=== PATIENT | female | born 1985 | race Caucasian/White ===

== ENCOUNTER 2017-05-16 18:52 | Emergency (ER) | payer MEDICAID, OTHER ==
--- NOTE | 2017-05-16 19:16 | EDPHY ---
H & P Time Seen by Provider: 05/16/17 19:03 HPI/ROS: Chief complaint. Altered mental status HPI. 31-year-old female with history of anxiety and depression as well as alcoholism was to have a mental health evaluation and assessment with [facility] yesterday. She skipped the appointment and disappeared overnight. She has been drinking alcohol. Unknown other medications. She has been suicidal in the past however her friend who is with her is not sure whether she has had thoughts of harming herself. She has previously cause self injury through cutting. Currently she has been vomiting and is nonverbal ROS Constitutional. no fever/chills, no weakness Eyes. no problems with vision ENT. no sore throat, no nasal drainage Cardiovascular. no chest pain Respiratory. no shortness of breath, no cough Abdominal. Vomiting . no problems urinating MS. no calf pain/swelling, no neck/back pain, no joint pain Skin. no rash Lymph. no swollen glands Neuro. Can not walk (Kelvin Cotto) Past Medical/Surgical History: Anxiety, depression, alcoholism (Kelvin Cotto) Social History: Single, daily smoker, recent alcohol (Kelvin Cotto) Physical Exam: General Appearance: Arousable well-developed female moderate distress. Tachycardic Eyes: Pupils equal round but dysconjugate gaze. ENT, Mouth: Mucous membranes are moist. Respiratory: There are no retractions, lungs are clear to auscultation. Cardiovascular: Regular rate and rhythm. Gastrointestinal: Abdomen is soft and nontender, no masses, bowel sounds normal. Neurological: Arousable. Moves all extremities Skin: Warm and dry, no rashes. Musculoskeletal: Neck is supple nontender. Extremities symmetrical, full range of motion. Psychiatric: Patient is currently nonverbal (Kelvin Cotto) Constitutional: Initial Vital Signs Temperature (C) 36.9 C 05/16/17 18:55 Heart Rate 136 H 05/16/17 18:55 Respiratory Rate 20 05/16/17 18:55 Blood Pressure 126/91 H 05/16/17 18:55 O2 Sat (%) 94 05/16/17 18:55 O2 Delivery Mode Room Air Allergies/Adverse Reactions: prochlorperazine [From Compazine] Allergy (Verified 05/16/17 19:35) LOCK JAW prochlorperazine edisylate [From Compazine] Allergy (Verified 05/16/17 19:35) LOCK JAW prochlorperazine maleate [From Compazine] Allergy (Verified 05/16/17 19:35) LOCK JAW Home Medications: Medication Instructions Recorded Ranitidine HCl [Zantac 75] 75 mg PO DAILY PRN 07/22/16 Venlafaxine Xr [Effexor Xr 75MG 225 mg PO DAILY 07/22/16 (*)] lamoTRIgine [LamICTAL 100 MG (*)] 50 mg PO DAILY 07/22/16 traZODone [traZODONE 50MG (*)] 50 mg PO HS PRN 07/22/16 Medical Decision Making Procedures: IV normal saline. Zofran for vomiting (Kelvin Cotto) ED Course/Re-evaluation: 7:30 p.m. patient is now agitated. She is given Haldol and Benadryl IV Re-evaluation 11:35 p.m.--patient is more awake and alert. She tells me that she has thoughts of harming herself. (Kelvin Cotto) Differential Diagnosis: Patient skipped her mental health evaluation yesterday and has drink a large amount alcohol. She is suicidal. She in the past has used alcohol for self medication for treatment of anxiety and depression She is placed on a detained her and will have a mental health evaluation once sober (Kelvin Cotto) Other Provider: Care assumed 0645 from [place], evaluation when sober by mental health. Evaluated by myself at 6:59 a.m., sleepy but easily awakened by voice, no medical complaints. She is not suicidal, says that she gets that way when she is drinking. 1150: Patient had psychiatric evaluation, she is not currently suicidal. Does not appear to meet criteria for mental health hold, does not appear to be danger to self or others or gravely disabled at this time. Recommendation from psychiatric evaluators to discharge the patient. (Cole Guerrero) Care Turn Over: care to Dr. Coppola at midnight (Kelvin Cotto) 0005 care assumed by me from Dr. Cotto pending sober mental health evaluation. 0655 care transferred to pending sober mental health evaluation. No issues during my care this patient overnight. (Loran,Griffin J) - Data Points Laboratory Results: Laboratory Results 05/16/17 19:05 05/16/17 19:05 05/17/17 05:34 Urine Opiates Screen NEGATIVE (NEGATIVE) Urine Barbiturates NEGATIVE (NEGATIVE) Ur Phencyclidine Scrn NEGATIVE (NEGATIVE) Ur Amphetamine Screen NEGATIVE (NEGATIVE) U Benzodiazepines Scrn NEGATIVE (NEGATIVE) Urine Cocaine Screen NEGATIVE (NEGATIVE) U Marijuana (THC) Screen NEGATIVE (NEGATIVE) Medications Given: Discontinued Medications Diphenhydramine HCl (Benadryl Injection) 12.5 mg IVP EDNOW ONE Stop: 05/16/17 19:36 Last Admin: 05/16/17 19:44 Dose: 12.5 mg Sodium Chloride (Ns) 1,000 mls @ 0 mls/hr IV ONCE ONE PRN Reason: Wide Open Stop: 05/16/17 19:21 Last Admin: 05/16/17 19:21 Dose: 1,000 mls Ondansetron HCl (Zofran) 4 mg IVP EDNOW ONE Stop: 05/16/17 19:21 Last Admin: 05/16/17 19:21 Dose: 4 mg Departure - Departure Disposition: Home, Routine, Self-Care Clinical Impression: Alcoholic intoxication Qualifiers: Complication of substance-induced condition: uncomplicated Qualified Code(s): F10.920 - Alcohol use, unspecified with intoxication, uncomplicated Condition: Good Instructions: Alcohol Intoxication (ED) Referrals: Reece Bowens MD [Primary Care Provider] - As per Instructions
[2017-05-16] MEDS ORDERED: ONDANSETRON 4 MG/2 ML VIAL ONE (19:18)
[2017-05-16] MEDS ORDERED: ONDANSETRON 4 MG/2 ML VIAL IVP ONE (19:20)
[2017-05-16] MEDS ORDERED: NS 1,000 ML IV ONE (19:20)
[2017-05-16 19:38] LABS: % IMMATURE GRANULYOCYTES 0.5 % (0.0-1.1); ABSOLUTE IMMATURE GRANULOCYTES 0.05 10^3/uL (0.00-0.10); ADD DIFF? NO; ADD MORPH? NO; ADD SCAN? NO; ATYPICAL LYMPHOCYTE FLAG 20 (0-99); FRAGMENT RBC FLAG 0 (0-99); HEMATOCRIT 43.6 % (38.0-47.0); HEMOGLOBIN 14.9 g/dL (12.6-16.3); LEFT SHIFT FLG 0 (0-99); LIPEMIA HEMOLYSIS FLAG 90 (0-99); MEAN CELL HEMOGLOBIN 29.9 pg (27.9-34.1); MEAN CELL HEMOGLOBIN CONCENTR. 34.2 g/dL (32.4-36.7); MEAN CELL VOLUME 87.4 fL (81.5-99.8); MEAN PLATELET VOLUME 8.9 fL (8.7-11.7); PLATELET CLUMPS FLAG 0 (0-99); PLATELET COUNT 470 10^3/uL (150-400); RED BLOOD CELL COUNT 4.99 10^6/uL (4.18-5.33); RED CELL DISTRIBUTION WIDTH 14.1 % (11.5-15.2)
[2017-05-16 19:41] LABS: ANION GAP 19 mEq/L (8-16); CALCIUM 9.6 mg/dL (8.5-10.4); CARBON DIOXIDE 20 mEq/l (22-31); CHLORIDE 111 mEq/L (97-110); CREATININE 0.8 mg/dL (0.6-1.0); GLOMERULAR FILTRATION RATE > 60; GLUCOSE 106 mg/dL (70-100); POTASSIUM 3.9 mEq/L (3.5-5.2); SODIUM 150 mEq/L (134-144)
[2017-05-16 19:56] LABS: ETHANOL SERUM 375 mg/dL (0-10)
[2017-05-17 11:05] VITALS: TEMP 98.1
[2017-05-17 12:24] VITALS: BP 141/95; PULSE 91; RESP 18; O2SAT 92
== END 2017-05-17 12:24 | disposition home or self-care (01) ==
DX: F10.920 Alcohol use, unspecified with intoxication, uncomplicated (principal); F17.200 Nicotine dependence, unspecified, uncomplicated
CPT/HCPCS: 80305; 82947-QW; 96374; G0480; J1200; J2405

== ENCOUNTER 2017-05-30 13:21 | Emergency (ER) | payer MEDICAID ==
[2017-05-30 13:28] VITALS: BP 119/91; PULSE 124; RESP 18; TEMP 98.8; O2SAT 96
== END 2017-05-30 15:00 | disposition left against medical advice (07) ==
DX: Z53.21 Procedure and treatment not carried out due to patient leaving prior to being seen by health care provider (principal)

== ENCOUNTER 2017-06-12 16:24 | Inpatient (IN) | payer MEDICAID ==
--- NOTE | 2017-06-12 16:45 | CPEKG ---
Heart Rate: 112 RR Interval: 536 P-R Interval: 128 QRSD Interval: 82 QT Interval: 356 QTC Interval: 486 P [place]: 0 QRS [place]: 52 T Wave [place]: 16 EKG Severity - ABNORMAL ECG - EKG Impression: SINUS TACHYCARDIA EKG Impression: RIGHT ATRIAL ABNORMALITY EKG Impression: BORDERLINE PROLONGED QT INTERVAL Electronically Signed By: Cole Guerrero 12-Jun-2017 17:06:58
--- NOTE | 2017-06-12 16:52 | EDPHY ---
H & P Time Seen by Provider: 06/12/17 16:36 HPI/ROS: CHIEF COMPLAINT: Altered mental status, overdose, mental health hold HISTORY OF PRESENT ILLNESS: came home and found the patient unresponsive and called 911. Fire arrived and found the patient unresponsive but on EMS arrival she was awake and combative. The patient told EMS that she tried overdose on her medications. She also admits to 13 shots of alcohol. She had nausea and vomiting prior to arrival. The medication bottles brought by EMS include Venlaxifine, trazodone, Lamictal, and Protonix. Further history and review of systems is unable as the patient is nonverbal on initial evaluation. PAST MEDICAL HISTORY: Per emergency department visit note dated 05/16/2017 which I personally reviewed, depression anxiety and alcohol Social history: Recent alcohol General Appearance: Lethargic, moves all 4 extremities spontaneously. Eyes: No scleral icterus. ENT, Mouth: Normal mucous membranes. No tongue laceration or abrasion. Respiratory: Normal respiratory effort, breath sounds equal, lungs are clear to auscultation. Cardiovascular: Regular rate and rhythm. Gastrointestinal: Abdomen is soft and non tender. Neurological: Lethargic, will not answer questions. Normal spontaneous movement in all 4 extremities. No clonus. Patellar reflexes 1+. Skin: Healed superficial lacerations on both forearms and right thigh, nothing new. Musculoskeletal: No peripheral edema and no joint swelling. Psychiatric: Unable, not verbal. Emergency Department course/MDM: 1715: Obtunded. Nasopharyngeal airway placed, patient on 100% face mask oxygen is still 87-88% saturation. Intubation discussed with family including and mother and consented. History at this time includes, previously had prolonged hospitalization at [facility] for serotonin syndrome. See procedure note for details of intubation. IV normal saline 2 L for transiently low blood pressure at 84 systolic. 1735: Chest x-ray one-view personally interpreted shows bilateral infiltrates consistent with aspiration, chemical pneumonitis at this time. Saturation 96%. Smoking Status: Never smoked Constitutional: Initial Vital Signs Temperature (C) 36.9 C 06/12/17 16:35 Heart Rate 130 H 06/12/17 16:35 Respiratory Rate 18 06/12/17 16:35 Blood Pressure 143/100 H 06/12/17 16:35 O2 Sat (%) 90 L 06/12/17 16:35 O2 Delivery Mode Non-Rebreather Mask O2 (L/minute) 15 Allergies/Adverse Reactions: prochlorperazine [From Compazine] Allergy (Verified 05/30/17 13:25) LOCK JAW prochlorperazine edisylate [From Compazine] Allergy (Verified 05/30/17 13:25) LOCK JAW prochlorperazine maleate [From Compazine] Allergy (Verified 05/30/17 13:25) LOCK JAW Home Medications: Medication Instructions Recorded traZODone [traZODONE 50MG (*)] 50 mg PO HS PRN 07/22/16 Ibuprofen [Motrin (*)] 200 mg PO Q4-6PRN PRN 06/12/17 Multivitamins [Multivitamin (*)] 1 each PO DAILY 06/12/17 Pantoprazole Sodium [Protonix 40mg 40 mg PO DAILY 06/12/17 (*)] Venlafaxine Xr [Effexor Xr] 150 mg PO DAILY 06/12/17 lamoTRIgine [Lamictal] 1 tab PO BID 06/12/17 Medical Decision Making - Diagnostics EKG Interpretation: 12-lead EKG interpreted by me; official reading is in trace master. My interpretation is sinus tachycardia, QTC is 356. Imaging Results: Imaging Impressions Chest X-Ray 06/12/17 17:26 Impression: 1. Bilateral lower lobe pneumonia, left greater than right, possible aspiration pneumonia. 2. Endotracheal tube above the angel. 3. Nasogastric tube in the stomach. Procedures: Indication for the procedure was obtained it, hypoxic. The patient was preoxygenated with 100% oxygen by face mask. The patient was sedated with Versed and paralyzed with rocuronium. The patient was orally endotracheally intubated under direct visualization with a 7.5 ETT. Tracheal intubation was confirmed with misting on the tube; breath sounds were auscultated equally bilaterally; appropriate color change with [place] CO2 detector, capnography waveform is appropriate, oxygen saturation after procedure is 96%. Chest X-ray shows ETT in good position. The procedure was performed by myself. Critical Care Time: Critical care time spent by me, Dr. Guerrero, exclusively with the care of this patient was 35 minutes, exclusive of PA or BILLIARD PARLOR MANAGER time and exclusive of separate procedures. The organ system at risk was neurologic metabolic and pulmonary and I ordered IV fluid resuscitation, multiple diagnostic studies, supplemental oxygen, discussion with hospitalist to stabilize the patient and prevent worsening of the patient's condition. - Data Points Laboratory Results: Laboratory Results 06/12/17 16:48 06/12/17 16:48 06/12/17 06/12/17 06/12/17 16:48 16:48 16:48 WBC RBC Hgb Hct MCV MCH MCHC RDW Plt Count MPV Neut % (Auto) Lymph % (Auto) [place] % (Auto) Eos % (Auto) Baso % (Auto) Nucleat RBC Rel Count Absolute Neuts (auto) Absolute Lymphs (auto) Absolute Monos (auto) Absolute Eos (auto) Absolute Basos (auto) Absolute Nucleated RBC Immature Gran % Immature Gran # Sodium 148 mEq/L H mEq/L (134-144) Potassium 4.0 mEq/L mEq/L (3.5-5.2) Chloride 104 mEq/L mEq/L (97-110) Carbon Dioxide 21 mEq/l L mEq/l (22-31) Anion Gap 23 mEq/L H mEq/L (8-16) BUN 8 mg/dL mg/dL (7-23) Creatinine 0.7 mg/dL mg/dL (0.6-1.0) Estimated GFR > 60 Glucose 130 mg/dL H mg/dL (70-100) Calcium 9.4 mg/dL mg/dL (8.5-10.4) Total Bilirubin 0.3 mg/dL mg/dL (0.1-1.4) Conjugated Bilirubin 0.3 mg/dL mg/dL (0.0-0.5) Unconjugated Bilirubin 0.0 mg/dL mg/dL (0.0-1.1) AST 39 IU/L IU/L (14-46) ALT 34 IU/L IU/L (9-52) Alkaline Phosphatase 99 IU/L IU/L (38-126) Creatine Kinase 41 IU/L IU/L (0-156) Total Protein 8.1 g/dL g/dL (6.3-8.2) Albumin 4.5 g/dL g/dL (3.5-5.0) Beta HCG, Qual NEGATIVE Salicylates < 1.0 mg/dL L mg/dL (2.0-20.0) Acetaminophen < 10 mcg/mL L mcg/mL (10-30) Ethyl Alcohol 298 mg/dL H mg/dL (0-10) 06/12/17 16:48 WBC 8.31 10^3/uL 10^3/uL (3.80-9.50) RBC 5.20 10^6/uL 10^6/uL (4.18-5.33) Hgb 15.8 g/dL g/dL (12.6-16.3) Hct 46.1 % % (38.0-47.0) MCV 88.7 fL fL (81.5-99.8) MCH 30.4 pg pg (27.9-34.1) MCHC 34.3 g/dL g/dL (32.4-36.7) RDW 13.7 % % (11.5-15.2) Plt Count 442 10^3/uL H 10^3/uL (150-400) MPV 8.8 fL fL (8.7-11.7) Neut % (Auto) 53.3 % % (39.3-74.2) Lymph % (Auto) 41.8 % % (15.0-45.0) [place] % (Auto) 3.2 % L % (4.5-13.0) Eos % (Auto) 0.6 % % (0.6-7.6) Baso % (Auto) 0.7 % % (0.3-1.7) Nucleat RBC Rel Count 0.0 % % (0.0-0.2) Absolute Neuts (auto) 4.43 10^3/uL 10^3/uL (1.70-6.50) Absolute Lymphs (auto) 3.47 10^3/uL H 10^3/uL (1.00-3.00) Absolute Monos (auto) 0.27 10^3/uL L 10^3/uL (0.30-0.80) Absolute Eos (auto) 0.05 10^3/uL 10^3/uL (0.03-0.40) Absolute Basos (auto) 0.06 10^3/uL 10^3/uL (0.02-0.10) Absolute Nucleated RBC 0.00 10^3/uL 10^3/uL (0-0.01) Immature Gran % 0.4 % % (0.0-1.1) Immature Gran # 0.03 10^3/uL 10^3/uL (0.00-0.10) Sodium Potassium Chloride Carbon Dioxide Anion Gap BUN Creatinine Estimated GFR Glucose Calcium Total Bilirubin Conjugated Bilirubin Unconjugated Bilirubin AST ALT Alkaline Phosphatase Creatine Kinase Total Protein Albumin Beta HCG, Qual Salicylates Acetaminophen Ethyl Alcohol Medications Given: Fentanyl/Sodium Chloride (Fentanyl 10 Mcg/Ml (Premix)) 100 mls @ 0 mls/hr IV CONT LIDYA; Per Protocol PRN Reason: Protocol Stop: 06/22/17 17:59 Last Admin: 06/12/17 19:24 Dose: 100 mls Propofol (Diprivan 10 Mg/Ml (Premix)) 100 mls @ 0 mls/hr IV CONT LIDYA; Per Protocol PRN Reason: Protocol Stop: 12/09/17 17:59 Last Admin: 06/12/17 19:24 Dose: 100 mls Sodium Chloride (Ns) 1,000 mls @ 125 mls/hr IV CONT LIDYA Stop: 12/09/17 18:44 Last Admin: 06/12/17 18:39 Dose: 1,000 mls Discontinued Medications Sodium Chloride (Ns) 1,000 mls @ 0 mls/hr IV EDNOW ONE; Wide Open PRN Reason: Protocol Stop: 06/12/17 17:25 Last Admin: 06/12/17 17:23 Dose: 1,000 mls Sodium Chloride (Ns) 1,000 mls @ 0 mls/hr IV EDNOW ONE; Wide Open PRN Reason: Protocol Stop: 06/12/17 17:38 Last Admin: 06/12/17 18:15 Dose: Not Given Midazolam HCl (Versed) 4 mg IVP EDNOW ONE Stop: 06/12/17 17:22 Last Admin: 06/12/17 17:24 Dose: 4 mg Rocuronium [place] (Zemuron) 60 mg IVP EDNOW ONE Stop: 06/12/17 17:22 Last Admin: 06/12/17 17:24 Dose: 60 mg Departure - Departure Disposition: [facility] In[facility] Acute Clinical Impression: Overdose of medication Qualifiers: Encounter type: initial encounter Injury intent: intentional self-harm Qualified Code(s): T50.902A - Poisoning by unspecified drugs, medicaments and biological substances, intentional self-harm, initial encounter Aspiration into airway Qualifiers: Encounter type: initial encounter Qualified Code(s): T17.908A - Unspecified foreign body in respiratory tract, part unspecified causing other injury, initial encounter Alcoholic intoxication Qualifiers: Complication of substance-induced condition: with unspecified complication Qualified Code(s): F10.929 - Alcohol use, unspecified with intoxication, unspecified Condition: Critical
[2017-06-12 16:59] LABS: % IMMATURE GRANULYOCYTES 0.4 % (0.0-1.1); ABSOLUTE IMMATURE GRANULOCYTES 0.03 10^3/uL (0.00-0.10); ADD DIFF? NO; ADD MORPH? NO; ADD SCAN? NO; ATYPICAL LYMPHOCYTE FLAG 60 (0-99); FRAGMENT RBC FLAG 0 (0-99); HEMATOCRIT 46.1 % (38.0-47.0); HEMOGLOBIN 15.8 g/dL (12.6-16.3); LEFT SHIFT FLG 0 (0-99); LIPEMIA HEMOLYSIS FLAG 90 (0-99); MEAN CELL HEMOGLOBIN 30.4 pg (27.9-34.1); MEAN CELL HEMOGLOBIN CONCENTR. 34.3 g/dL (32.4-36.7); MEAN CELL VOLUME 88.7 fL (81.5-99.8); MEAN PLATELET VOLUME 8.8 fL (8.7-11.7); PLATELET CLUMPS FLAG 10 (0-99); PLATELET COUNT 442 10^3/uL (150-400); RED CELL DISTRIBUTION WIDTH 13.7 % (11.5-15.2)
[2017-06-12 17:12] LABS: ANION GAP 23 mEq/L (8-16); CALCIUM 9.4 mg/dL (8.5-10.4); CARBON DIOXIDE 21 mEq/l (22-31); CHLORIDE 104 mEq/L (97-110); CREATININE 0.7 mg/dL (0.6-1.0); ETHANOL SERUM 298 mg/dL (0-10); GLOMERULAR FILTRATION RATE > 60; GLUCOSE 130 mg/dL (70-100); SALICYLATE < 1.0 mg/dL (2.0-20.0); SODIUM 148 mEq/L (134-144)
[2017-06-12] MEDS ORDERED: ROCURONIUM 100 MG/10 ML VIAL IVP ONE (17:21)
[2017-06-12] MEDS ORDERED: MIDAZOLAM 2 MG/2 ML VIAL IVP ONE (17:21)
[2017-06-12] MEDS ORDERED: NS 1,000 ML IV ONE ×2 (17:24→17:37)
[2017-06-12] MEDS ORDERED: MIDAZOLAM HCL 50 MG in D5W 50 ML IV SCH (17:30)
[2017-06-12] MEDS ORDERED: ACETAMINOPHEN 325 MG TAB PO PRN (17:43)
[2017-06-12] MEDS ORDERED: ONDANSETRON 4 MG/2 ML VIAL IVP PRN (17:43)
[2017-06-12] MEDS ORDERED: ONDANSETRON DISINTEGRATING 4 MG TAB PO PRN (17:43)
[2017-06-12 18:39] LABS: ALBUMIN 4.5 g/dL (3.5-5.0); BILIRUBIN,TOTAL 0.3 mg/dL (0.1-1.4); BILIRUBIN-CONJUGATED 0.3 mg/dL (0.0-0.5); TOTAL PROTEIN 8.1 g/dL (6.3-8.2)
[2017-06-12] MEDS ORDERED: NS 1,000 ML IV SCH (18:45)
[2017-06-12] MEDS: fentaNYL/NACL 100 ML IV SCH (19:24)
[2017-06-12] MEDS: PROPOFOL/EMULSION 100 ML IV SCH (19:24)
[2017-06-12] MEDS ORDERED: LORazepam 2 MG/ML INJ IVP ONE (19:29)
[2017-06-12] MEDS ORDERED: LORazepam 2 MG/ML INJ IVP PRN (19:29)
[2017-06-12] MEDS ORDERED: ERTAPENEM 1 GM in NS 100 ML IV ONE (19:32)
[2017-06-12] MEDS: PANTOPRAZOLE SODIUM 40 MG in NS 100 ML IV SCH (19:53)
[2017-06-12] MEDS: CHLORHEXIDINE GLUCONATE 15 ML UDL PO SCH (19:55)
[2017-06-12 20:21] LABS: BASE EXCESS -4.5 mEq/L (-2.5-2.5); BICARBONATE 19 mEq/L (22-26); MEASURED OXYGEN SATURATION 98 % (92-95); PCO2 32 mmHg (34-38); PO2 113 mmHg (65-75); TCO2 20 mEq/L (23-27)
[2017-06-12 20:22] LABS: END TIDAL CO2 34; O2 CONCENTRATIION 50 % (0-100); P/F RATIO 226 RATIO; PATIENT RATE 12; PRESSURE SUPPORT 7; SIMV YES
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
[2017-06-12] MEDS ORDERED: FAMOTIDINE 20 MG/NACL 50 ML IV SCH (21:00)
[2017-06-12] MEDS ORDERED: CHLORHEXIDINE GLUCONATE 15 ML UDL PO SCH (21:00)
[2017-06-12 22:35] LABS: HEMATOCRIT 38.5 % (38.0-47.0)
[2017-06-13] MEDS: NS 1,000 ML IV SCH ×2 (03:53→12:37)
[2017-06-13] MEDS: fentaNYL/NACL 100 ML IV SCH (03:53)
[2017-06-13] MEDS: PROPOFOL/EMULSION 100 ML IV SCH (03:53)
[2017-06-13] MEDS: DEXMEDETOMIDINE HCL 400 MCG in NS 100 ML IV SCH ×2 (04:27→12:37)
[2017-06-13 05:41] LABS: % IMMATURE GRANULYOCYTES 0.5 % (0.0-1.1); ABSOLUTE IMMATURE GRANULOCYTES 0.09 10^3/uL (0.00-0.10); ADD DIFF? NO; ADD MORPH? NO; ADD SCAN? NO; ATYPICAL LYMPHOCYTE FLAG 20 (0-99); FRAGMENT RBC FLAG 0 (0-99); HEMATOCRIT 33.8 % (38.0-47.0); HEMOGLOBIN 11.4 g/dL (12.6-16.3); LEFT SHIFT FLG 0 (0-99); LIPEMIA HEMOLYSIS FLAG 80 (0-99); MEAN CELL HEMOGLOBIN 30.6 pg (27.9-34.1); MEAN CELL HEMOGLOBIN CONCENTR. 33.7 g/dL (32.4-36.7); MEAN CELL VOLUME 90.6 fL (81.5-99.8); PLATELET CLUMPS FLAG 0 (0-99); PLATELET COUNT 298 10^3/uL (150-400); RED BLOOD CELL COUNT 3.73 10^6/uL (4.18-5.33)
[2017-06-13 05:53] LABS: ALANINE AMINOTRANSFERASE 27 IU/L (9-52); ALBUMIN 2.9 g/dL (3.5-5.0); ALKALINE PHOSPHATASE 59 IU/L (38-126); ANION GAP 12 mEq/L (8-16); ASPARTATE AMINOTRANSFERASE 23 IU/L (14-46); BILIRUBIN,TOTAL 0.2 mg/dL (0.1-1.4); CALCIUM 7.3 mg/dL (8.5-10.4); CARBON DIOXIDE 20 mEq/l (22-31); CHLORIDE 112 mEq/L (97-110); CREATININE 0.7 mg/dL (0.6-1.0); GLOMERULAR FILTRATION RATE > 60; GLUCOSE 88 mg/dL (70-100); POTASSIUM 3.8 mEq/L (3.5-5.2); SODIUM 144 mEq/L (134-144); TOTAL PROTEIN 5.3 g/dL (6.3-8.2)
[2017-06-13] MEDS ORDERED: PROTOCOL MAGNESIUM 1 DOSE IV PRN (06:08)
[2017-06-13] MEDS ORDERED: PROTOCOL POTASSIUM 1 DOSE MISC PRN (06:08)
[2017-06-13] MEDS ORDERED: MAGNESIUM SULF 2 GM/WATER 50 ML IV ONE (06:09)
[2017-06-13] MEDS: CHLORHEXIDINE GLUCONATE 15 ML UDL PO SCH (08:21)
[2017-06-13] MEDS: PANTOPRAZOLE SODIUM 40 MG in NS 100 ML IV SCH (08:21)
[2017-06-13] MEDS ORDERED: ENOXAPARIN 40 MG/0.4 ML SYR SC SCH (09:00)
[2017-06-13] MEDS ORDERED: ERTAPENEM 1 GM in NS 100 ML IV SCH (09:00)
[2017-06-13] MEDS ORDERED: PROTOCOL K PHOSPHATE 1 DOSE IV PRN (10:44)
--- NOTE | 2017-06-13 10:48 | GCON ---
[f rep st] CONSULTATION PULMONARY CRITICAL CARE CONSULTATION DATE OF CONSULTATION: 06/13/2017 REASON FOR CONSULTATION: Acute respiratory failure, drug overdose. HISTORY: The patient is a 31-year-old with a history of depression, psychiatric disease, PTSD, anxi ety, and alcohol abuse. She has had prior suicide attempts and has been intubated in the past secon indra to these. She has also tried to cut her wrists. Yesterday she was found down at home. Her hu sband called 911. The patient was unresponsive initially, but was combative in route. She apparent ly said she tried to overdose with medications and alcohol. She did have witnessed nausea and vomit ing in transport. Ingested medications included Effexor, trazodone and Lamictal, possible Protonix. She was admitted to the Intensive Care Unit. She did receive 1 dose of ertapenem. She has been sed ated, is on the ventilator. PAST MEDICAL HISTORY: Remarkable for her psychiatric issues as outlined above. She has apparently been hospitalized at [facility] a number of times. She has had multiple suicide attempts and gestures. SOCIAL HISTORY: , lives in [place]. Apparently, drinks numerous shots of vodka daily. 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 She is disabled secondary to her borderline personality and psychiatric/d epressive illness. FAMILY HISTORY: Positive for depression and anxiety. DRUG ALLERGIES: Compazine. REVIEW OF SYSTEMS: Unobtainable. PHYSICAL EXAMINATION: GENERAL: Reveals a young woman who is sedated, on the ventilator, with stimu lation she will arouse and follows some simple commands, moves extremities to commands, etc. VITAL SIGNS: Blood pressure is 100/70, heart rate 75, is sinus rhythm on the monitor. She is afebr ile on 40% FiO2, saturations are 99%, respiratory rate is 16, set on the ventilator. HEENT: Remarkable for an oral endotracheal tube and orogastric tube. Pupils are equal and appear t o be reactive. Mucous membranes are somewhat dry. NECK: There is no lymphadenopathy or thyromegaly. No obvious jugular venous distention or neck ten derness. CHEST: Clear anteriorly. Breath sounds are diminished at the bases. Breath sounds are coarse with some minimal central rhonchi, and a few rales are present at the bases. There is no obvious consol idation. HEART: Regular rate and rhythm without significant murmur or gallop. ABDOMEN: Soft. Bowel sounds are present, but diminished. There is no obvious tenderness. : Franklin catheter is in place. Urine output is adequate. Input is greater than output. EXTREMITIES: Unremarkable for edema or obvious cords. SKIN: Without rash or lesions. Old cut abreu are present over the wrists, left greater than right. LABORATORY DATA: Chest x-ray on admission from last night shows bilateral lower lobe infiltrates/at electasis. Changes are more significant on the left compared to the right. Lines and tubes are in good position. White blood cell count is approximately 17,000, up from 8,000 on admission. Hematocrit is 33.8, barby n from 46. Platelets are 298,000. Arterial blood gas post intubation showed a pH of 7.39, pCO2 of 32, and pO2 of 113 on 50%, 600 and a respiratory rate of 12. Basic metabolic panel is within normal limits with the exception of a CO2 of 20. Anion gap this morning is 12, down from 23. Calcium is 7.3, phosphorus 3.5, and magnesium low at 1.0. BUN is 6 with a creatinine is 0.7. Sodium and potas sium are normal. Bilirubin liver function studies are normal. Albumin is 2.9. Beta HCG was negati ve on admission. Blood alcohol on admission was 298. Tox screen, salicylates, acetaminophen are al l negative. EKG on admission showed a sinus tachycardia. QT interval was high normal. ASSESSMENT: 1. Intentional drug overdose, suicide attempt. Multiple drugs are involved and include Effexor, La mictal and trazodone, as well as alcohol. Pill counts regarding ingested amounts are unknown to me at this time. No antidotes are available. 2. Acute respiratory failure secondary to #1. The patient is intubated, sedated, on the ventilator . As mental status improves CPAP trials can be initiated, and extubation considered when she meets criteria for this. 3. Suspected aspiration pneumonia. She presented with bilateral pulmonary infiltrates, and a histo ry of witnessed vomiting and aspiration. She received ertapenem in the Emergency Department, but th is has not been continued. A sputum culture will be obtained and ertapenem restarted. Albuterol wi ll be added to her regimen. 4. History of a personality disorder, depression, anxiety, previous suicide attempts. 5. Metabolic. Significant hypomagnesemia is present. Electrolyte replacement as per protocols louie l be ordered. 6. History of chronic alcohol abuse. She will be placed on the CIWA protocol once she is extubated . Withdrawal certainly seems possible based on the amount reported drinking. She is on thiamine. 7. Anemia. Hematocrit has dropped, probably dilutional. This will be followed. 8. Gastrointestinal prophylaxis. Pantoprazole will be continued. 9. Deep vein thrombosis prophylaxis. Enoxaparin will be initiated. PLAN: Support will be maintained in the Intensive Care Unit. Intravenous fluids will be continued. A sputum culture will be obtained. Ertapenem will be continued. Fentanyl and propofol will be li ghtened as tolerated, and she will be weaned when appropriate. She will be kept on the cardiac himanshu tor. Chest x-ray and laboratory will be followed. A new chest x-ray will be ordered for this damion ng. CPAP weans will be initiated when possible. She will be kept on a M1 hold postextubation. Psy chiatric evaluation will be needed prior to discharge. Further plans and recommendations will be made based on her progress over the next 12-24 hours. /[id number]/MODL
[2017-06-13] MEDS ORDERED: IPRATROPIUM/ALBUTEROL 3 ML DEYVIAL IH PRN (11:41)
[2017-06-13] MEDS ORDERED: ALBUTEROL 60 PUFFS/8 GM MDI IH SCH (12:00)
[2017-06-13] MEDS ORDERED: ALBUTEROL 200 PUFFS/18 GM MDI IH SCH (12:00)
[2017-06-13] MEDS: ENOXAPARIN 40 MG/0.4 ML SYR SC SCH (12:37)
[2017-06-13] MEDS: THIAMINE HCL 100 MG TAB PO SCH (12:38)
[2017-06-13 13:22] LABS: MAGNESIUM 2.2 mg/dL (1.6-2.3); POTASSIUM 4.2 mEq/L (3.5-5.2)
--- NOTE | 2017-06-13 13:49 | HOSPPROG ---
Hospitalist Progress Note Assessment/Plan: # Acute intentional multi-drug overdose- patient has had severe recent depression with multiple recent attempt Currently intubated for airway protection- oxygen saturations 95% on ventilator at at FiO2 40% - continue ventilatory support until stable for extubation - continue cardiac monitoring - continue IV fluids and supportive care # acute hypoxic respiratory failure- chest x-ray(personally reviewed and interpreted) bilateral infiltrate Presumed aspiration event - blood cultures NGTD - continue ventilatory support - continue empiric IV antibiotics # severe alcohol abuse with history of withdrawal- reported 10-12 drinks per day - ethanol level 298 at presentation - agree with Precedex drip for sedation and treatment of alcohol withdrawal - when extubated can add scheduled Librium with p.r.n. Ativan # severe depression- patient has had multiple suicide attempts recently will need aggressive psychiatric care after medical stabilization - holding all home meds # severe anion gap metabolic acidosis- secondary to dehydration alcohol abuse and multi-drug overdose Anion gap 12 this a.m. after fluid resuscitation - continue to monitor closely # normocytic anemia- hemoglobin 13 after hydration- would expect macrocytosis in the setting of severe alcohol abuse - will send iron studies - follow daily # hypernatremia- resolved with fluid resuscitation overnight # prophylaxis Lovenox, Pepcid # diet NPO while intubated # disposition greater than 2 midnights as the patient remains critically ill status post multi-drug overdose and aspiration event I discussed case with Dr. Dominguez will work on weaning parameters for extubation today Subjective: no events overnight Objective: Vital Signs Temp Pulse Resp BP Pulse Ox 37.8 C 72 13 100/68 99 06/13/17 12:00 06/13/17 12:00 06/13/17 12:00 06/13/17 12:00 06/13/17 12:00 Laboratory Results 06/13/17 05:30 06/12/17 06/13/17 06/14/17 05:59 05:59 05:59 Intake Total 3109 Output Total 355 210 Balance 2754 -210 - Physical Exam Constitutional: appears nourished Eyes: anicteric sclera Ears, Nose, Mouth, Throat: dry mucous membranes Cardiovascular: regular rate and rhythym, tachycardia Respiratory: no respiratory distress, No inspiratory crackles Gastrointestinal: normoactive bowel sounds Genitourinary: no bladder fullness Skin: warm Musculoskeletal: No asymmetric calves Neurologic: No AAOx3 Psychiatric: agitated Lymph, Heme, Immunologic: no cervical LAD ICD10 Worksheet Patient Problems: Problems Problem Status Onset Alcoholic intoxication Acute Aspiration into airway Acute Overdose of medication Acute
[2017-06-13 15:58] LABS: % SATURATION 23 % (20-55); TOTAL IRON BINDING CAPACITY 267 ug/dL (260-490)
[2017-06-13 16:24] LABS: FERRITIN - BCH 19.9 ng/mL (6.2-264.0)
[2017-06-13] MEDS: ERTAPENEM 1 GM in NS 100 ML IV SCH (19:55)
[2017-06-13] MEDS ORDERED: FAMOTIDINE 20 MG TAB PO SCH (21:00)
[2017-06-14 05:25] LABS: % IMMATURE GRANULYOCYTES 0.4 % (0.0-1.1); ABSOLUTE IMMATURE GRANULOCYTES 0.03 10^3/uL (0.00-0.10); ADD DIFF? NO; ADD MORPH? NO; ADD SCAN? NO; ATYPICAL LYMPHOCYTE FLAG 20 (0-99); FRAGMENT RBC FLAG 0 (0-99); HEMATOCRIT 32.2 % (38.0-47.0); HEMOGLOBIN 10.6 g/dL (12.6-16.3); LEFT SHIFT FLG 0 (0-99); LIPEMIA HEMOLYSIS FLAG 80 (0-99); MEAN CELL HEMOGLOBIN 30.3 pg (27.9-34.1); MEAN CELL HEMOGLOBIN CONCENTR. 32.9 g/dL (32.4-36.7); MEAN PLATELET VOLUME 8.8 fL (8.7-11.7); PLATELET CLUMPS FLAG 0 (0-99); PLATELET COUNT 191 10^3/uL (150-400); RED CELL DISTRIBUTION WIDTH 13.7 % (11.5-15.2)
[2017-06-14 05:45] LABS: ANION GAP 8 mEq/L (8-16); CALCIUM 7.4 mg/dL (8.5-10.4); CARBON DIOXIDE 23 mEq/l (22-31); CHLORIDE 107 mEq/L (97-110); CREATININE 0.6 mg/dL (0.6-1.0); GLOMERULAR FILTRATION RATE > 60; GLUCOSE 79 mg/dL (70-100); MAGNESIUM 1.9 mg/dL (1.6-2.3); POTASSIUM 3.4 mEq/L (3.5-5.2); SODIUM 138 mEq/L (134-144)
[2017-06-14] MEDS ORDERED: POTASSIUM CL 10 MEQ TAB PO ONE (06:17)
[2017-06-14] MEDS: ENOXAPARIN 40 MG/0.4 ML SYR SC SCH (09:23)
[2017-06-14] MEDS: THIAMINE HCL 100 MG TAB PO SCH (09:23)
[2017-06-14] MEDS: PANTOPRAZOLE SODIUM 40 MG TAB PO SCH (09:23)
[2017-06-14] MEDS ORDERED: K PHOS 10 MMOL in D5W 250 ML IV ONE (12:00)
--- NOTE | 2017-06-14 17:48 | PDINTPN ---
Proposal Manager Writer Progress Note Assessment/Plan: Assessment: Suicide attempt, history of depression. On M1 hold Polysubstance overdose, resolving. Possible aspiration pneumonia. However, chest x-ray significantly improved yesterday. She does have congestion and bi basilar rales. On Invanz, duo nebs p.r.n.. Clinically doing well, off oxygen. History of alcohol abuse. CIWA is near 0. Metabolic: Hypokalemia, hypo phosphate E Afia. On replacement protocols. Prophylaxis: On enoxaparin and pantoprazole. Plan: Continue care in the intensive care unit for now secondary to the M1 hold. Likely will be medically clear tomorrow and will then be available for TLC/psychiatric evaluation. In light of her significant ingestion and recurrent suicide attempts, inpatient psychiatric hospitalization may again be needed. Laboratory will be followed. Repeat chest x-ray in the a.m.. 25 minutes of critical care time spent directly with the patient. Discussed with the patient's , nursing, respiratory, and the ICU multi disciplinary team. Subjective: Some pulmonary congestion, otherwise no specific complaints. Has some minor anterior left-sided musculoskeletal chest pain. Objective: Vital Signs Temp Pulse Resp BP Pulse Ox 36.9 C 94 95 H 137/91 H 92 06/14/17 16:00 06/14/17 16:00 06/14/17 16:00 06/14/17 16:00 06/14/17 12:00 Microbiology 06/13/17 11:00 - Final Sputum, Induced/Suctioned Laboratory Results 06/14/17 05:10 06/14/17 05:10 06/13/17 06/14/17 06/15/17 05:59 05:59 05:59 Intake Total 3109 4935 Output Total 355 270 Balance 4068 8945 Sputum culture: [facility] [place] Physical Exam - Physical Exam General Appearance: alert, no apparent distress EENT: PERRL/EOMI, other (On room air) Neck: normal inspection Respiratory: lungs clear (Anteriorly), decreased breath sounds (At bases with rales, congestion, few wheezes), rales (At bases), rhonchi (Few present with cough), wheezing (Few scattered at bases) Cardiac/Chest: regular rate, rhythm Abdomen: normal bowel sounds, non-tender, soft Skin: normal color, warm/dry Extremities: pedal edema (Trace) Neuro/Psych: no motor/sensory deficits, No cognition abnormalities ICD10 Worksheet Patient Problems: Problems Problem Status Onset Overdose of medication Acute Aspiration into airway Acute Alcoholic intoxication Acute
--- NOTE | 2017-06-14 17:56 | HOSPPROG ---
Hospitalist Progress Note Assessment/Plan: 31 yo F with PMH of severe depression and prior suicide attempts presenting s/p suicide attempt by multi drug overdose # Acute intentional multi-drug overdose- patient has had severe recent depression with multiple recent attempts has recovered but continues to be slightly weak/unsteady concerning that she remains high risk for another attempt, she denies intention to attempt harming herself in the hospital -on M1 hold, psych to evaluate in am # acute hypoxic respiratory failure- chest x-ray(personally reviewed and interpreted) bilateral infiltrate Presumed aspiration event - blood cultures NGTD - now extubated and doing well on minimal supplemental o2, will attempt to wean as able # aspiration pneumonia: in setting of overdose as above, continued on ertapenem for now, will transition to oral at time of dc # severe alcohol abuse with history of withdrawal- reported 10-12 drinks per day - ethanol level 298 at presentation - has improved and now off of precedex gtt # severe depression- patient has had multiple suicide attempts recently will need aggressive psychiatric care after medical stabilization - holding all home meds for now, asking for BH eval in the am # severe anion gap metabolic acidosis- secondary to dehydration alcohol abuse and multi-drug overdose resolved # normocytic anemia- has been relatively stable though continued mild anemia, iron studies wnl, continue to trend, platelets dropped as well and suspect largely dilutional # hypernatremia- resolved with fluid resuscitation # prophylaxis Lovenox, Pepcid # IP status Patient new to my care. Old records reviewed and summarized as above. cAre plan reviewed with Dr. Dominguez and multidisciplinary care team on rounds, further hx obtained from patients partner present at bedside. Subjective: no significant overnight events, patient is feeling better other than sore throat and shaky on her feet, still fatigued Objective: Vital Signs Temp Pulse Resp BP Pulse Ox 36.9 C 94 95 H 137/91 H 91 L 06/14/17 16:00 06/14/17 16:00 06/14/17 16:00 06/14/17 16:00 06/14/17 12:02 Microbiology 06/13/17 11:00 - Final Sputum, Induced/Suctioned Laboratory Results 06/14/17 05:10 06/14/17 05:10 06/13/17 06/14/17 06/15/17 05:59 05:59 05:59 Intake Total 3107 9535 Output Total 355 270 Balance 2754 4665 awake alert nad anicteric op clear rrr no mrg cta with bibasilar crackles soft nt nd no cce warm dry well perfused oriented appropriate ICD10 Worksheet Patient Problems: Problems Problem Status Onset Overdose of medication Acute Aspiration into airway Acute Alcoholic intoxication Acute
[2017-06-14 18:47] LABS: POTASSIUM 3.7 mEq/L (3.5-5.2)
[2017-06-14] MEDS: ERTAPENEM 1 GM in NS 100 ML IV SCH (20:59)
[2017-06-15 06:27] LABS: % IMMATURE GRANULYOCYTES 0.4 % (0.0-1.1); ABSOLUTE IMMATURE GRANULOCYTES 0.03 10^3/uL (0.00-0.10); ADD DIFF? NO; ADD MORPH? NO; ADD SCAN? NO; ATYPICAL LYMPHOCYTE FLAG 30 (0-99); FRAGMENT RBC FLAG 0 (0-99); HEMATOCRIT 36.6 % (38.0-47.0); HEMOGLOBIN 12.7 g/dL (12.6-16.3); LEFT SHIFT FLG 0 (0-99); LIPEMIA HEMOLYSIS FLAG 90 (0-99); MEAN CELL HEMOGLOBIN 30.8 pg (27.9-34.1); MEAN CELL HEMOGLOBIN CONCENTR. 34.7 g/dL (32.4-36.7); MEAN CELL VOLUME 88.6 fL (81.5-99.8); MEAN PLATELET VOLUME 9.1 fL (8.7-11.7); PLATELET CLUMPS FLAG 0 (0-99); PLATELET COUNT 272 10^3/uL (150-400); RED BLOOD CELL COUNT 4.13 10^6/uL (4.18-5.33); RED CELL DISTRIBUTION WIDTH 13.6 % (11.5-15.2)
[2017-06-15 06:56] LABS: ANION GAP 10 mEq/L (8-16); CALCIUM 9.1 mg/dL (8.5-10.4); CARBON DIOXIDE 24 mEq/l (22-31); CHLORIDE 104 mEq/L (97-110); CREATININE 0.7 mg/dL (0.6-1.0); GLOMERULAR FILTRATION RATE > 60; GLUCOSE 81 mg/dL (70-100); MAGNESIUM 2.1 mg/dL (1.6-2.3); SODIUM 138 mEq/L (134-144)
[2017-06-15] MEDS: PANTOPRAZOLE SODIUM 40 MG TAB PO SCH (08:35)
[2017-06-15] MEDS: ENOXAPARIN 40 MG/0.4 ML SYR SC SCH (08:35)
[2017-06-15] MEDS: THIAMINE HCL 100 MG TAB PO SCH (08:35)
[2017-06-15] MEDS ORDERED: THIAMINE HCL 100 MG TAB PO SCH (09:00)
--- NOTE | 2017-06-15 12:37 | PDINTPN ---
Plating Tank Operator Progress Note Assessment/Plan: Assessment: Suicide attempt, history of depression. Admitted 06/12 on M1 hold. Polysubstance overdose, including drugs for depression and alcohol, resolved. Now medically clear. Possible aspiration pneumonia. Chest x-ray is significantly improved regarding her left lower lobe infiltrate/atelectasis. She does have residual congestion and bi basilar rales, clinically improved. On Invanz, duo nebs p.r.n. will change to Augmentin. She will need a total of 7 days of antibiotics.. Clinically doing well, off oxygen. History of alcohol abuse. CIWA is near 0. Metabolic: Hypokalemia, hypophosphatemia. Resolved. On replacement protocols. Prophylaxis: On enoxaparin and pantoprazole. Stop enoxaparin on discharge. She was on pantoprazole pre hospitalization Plan: Medically clear. Can be evaluated by Psychiatry/TLC with appropriate discharge per their evaluation. In light of her significant ingestion and recurrent suicide attempts, inpatient psychiatric hospitalization may again be needed? Alcohol counseling will be needed as well. Blood alcohol was significantly elevated on admission and acute intoxication may be exacerbating her depression and removing psychological stops that allow her to then overdose with medications? Will discharge on Augmentin for a 7 day total course of antibiotics: Will thus need 4 more days/8 tablets on discharge. 30 minutes of critical care time spent directly with the patient. Discussed with the patient, hospitalist, nursing, and the ICU multi disciplinary team. Subjective: Some congestion and cough persists. Denies chest pain or shortness of breath. Doing well otherwise. Objective: Vital Signs Temp Pulse Resp BP Pulse Ox 36.4 C 76 16 126/84 H 98 06/15/17 08:00 06/15/17 08:00 06/15/17 08:00 06/15/17 08:00 06/15/17 08:00 Microbiology 06/13/17 11:00 - Final Sputum, Induced/Suctioned Sputum Culture - Final Laboratory Results 06/15/17 06:00 06/15/17 06:00 06/14/17 06/15/17 06/16/17 05:59 05:59 05:59 Intake Total 4935 1673 Output Total 270 1 Balance 4665 1672 Laboratory Tests 06/15/17 06:00 Calcium 9.1 D Phosphorus 3.2 D Magnesium 2.1 CXR: Resolving left lower lobe infiltrate and/or atelectasis. Minimal changes persist. Physical Exam - Physical Exam General Appearance: alert, no apparent distress EENT: other (On room air) Neck: normal inspection Respiratory: lungs clear (Anteriorly), decreased breath sounds (At bases with some mild basilar congestion), rales (Few rales persisting, no rhonchi. Mild congestion with cough) Cardiac/Chest: regular rate, rhythm Abdomen: normal bowel sounds, non-tender, soft Skin: normal color, warm/dry Extremities: No pedal edema Neuro/Psych: no motor/sensory deficits, No cognition abnormalities ICD10 Worksheet Patient Problems: Problems Problem Status Onset Overdose of medication Acute Aspiration into airway Acute Alcoholic intoxication Acute
[2017-06-15] MEDS: AMOXICILLIN/CLAVULANATE POT 875/125 MG TAB PO SCH ×2 (14:50→22:12)
--- NOTE | 2017-06-15 15:43 | HOSPPROG ---
Hospitalist Progress Note Assessment/Plan: 31 yo F with PMH of severe depression and prior suicide attempts presenting s/p suicide attempt by multi drug overdose # Acute intentional multi-drug overdose- patient has had severe recent depression with multiple recent attempts medically has recovered but remains at risk from a self harm perspective and awaiting input # acute hypoxic respiratory failure- 2/2 both aspiration and inability to protect airway due to overdose and baking factory worker suppression - now extubated and doing well on room air # aspiration pneumonia: in setting of overdose as above, has been on ertapenem and now transitioned to augmentin # severe alcohol abuse with history of withdrawal- reported 10-12 drinks per day - ethanol level 298 at presentation - w/d sxs have essentially resolved # severe depression- patient has had multiple suicide attempts recently will need aggressive psychiatric care after medical stabilization - holding all home meds for now, asking for eval today # severe anion gap metabolic acidosis- secondary to dehydration alcohol abuse and multi-drug overdose resolved # normocytic anemia- has been relatively stable though continued mild anemia, iron studies wnl, suspect largely dilutional # hypernatremia- resolved with fluid resuscitation # prophylaxis Lovenox, Pepcid # IP status cAre plan reviewed with Dr. Dominguez and multidisciplinary care team on rounds Subjective: no significant overnight events, patient feeling better, still a bit fatigued Objective: Vital Signs Temp Pulse Resp BP Pulse Ox 36.4 C 76 16 126/84 H 98 06/15/17 08:00 06/15/17 08:00 06/15/17 08:00 06/15/17 08:00 06/15/17 08:00 Microbiology 06/13/17 11:00 - Final Sputum, Induced/Suctioned Sputum Culture - Final Laboratory Results 06/15/17 06:00 06/15/17 06:00 06/14/17 06/15/17 06/16/17 05:59 05:59 05:59 Intake Total 4935 1673 Output Total 270 1 Balance 4665 1672 awake alert nad anicteric op clear rrr no mrg cta with bibasilar crackles soft nt nd no cce warm dry well perfused oriented appropriate ICD10 Worksheet Patient Problems: Problems Problem Status Onset Alcoholic intoxication Acute Aspiration into airway Acute Overdose of medication Acute
--- NOTE | 2017-06-15 17:48 | PDDCSUM ---
Discharge Summary Discharge Summary: Dates of service 06/12-06/15/17 Discharge dx: # acute intentional multi drug overdose # severe depression # acute hypoxic respiratory failure # aspiration pneumonia # alcohol abuse # AGMA # normocytic anemia Consultations: pulmonary, psychiatry Procedures performed: endotracheal intubation Hospital course by problem: 31 yo F with PMH of severe depression and prior suicide attempts presenting s/p suicide attempt by multi drug overdose # Acute intentional multi-drug overdose- patient has had severe recent depression with multiple recent attempts medically has recovered but remains at risk from a self harm perspective and involved # acute hypoxic respiratory failure- 2/2 both aspiration and inability to protect airway due to overdose and outbound call center representative suppression - now extubated and doing well on room air # aspiration pneumonia: in setting of overdose as above, has been on ertapenem and now transitioned to augmentin for total 7 day course # severe alcohol abuse with history of withdrawal- reported 10-12 drinks per day - ethanol level 298 at presentation - w/d sxs have essentially resolved # severe depression- patient has had multiple suicide attempts recently will need aggressive psychiatric care after medical stabilization - holding all home meds for now, asking for eval today # severe anion gap metabolic acidosis- secondary to dehydration alcohol abuse and multi-drug overdose resolved # normocytic anemia- has been relatively stable though continued mild anemia, iron studies wnl, suspect largely dilutional # hypernatremia- resolved with fluid resuscitation # prophylaxis Lovenox, Pepcid # IP status > 35 minutes spent in dc of patient
[2017-06-16 07:04] LABS: POTASSIUM 4.1 mEq/L (3.5-5.2)
[2017-06-16] MEDS: AMOXICILLIN/CLAVULANATE POT 875/125 MG TAB PO SCH (10:12)
[2017-06-16] MEDS: THIAMINE HCL 100 MG TAB PO SCH (10:13)
[2017-06-16] MEDS: ENOXAPARIN 40 MG/0.4 ML SYR SC SCH (10:13)
[2017-06-16] MEDS: PANTOPRAZOLE SODIUM 40 MG TAB PO SCH (10:13)
[2017-06-16 10:37] VITALS: BP 121/89; PULSE 99; RESP 18; TEMP 97.9; O2SAT 97
--- NOTE | 2017-06-16 18:39 | PDDCSUM ---
Discharge Summary Discharge Summary: Please see dictated discharge summary from 06/15/2017. There has been no change in status. Pt is transferred to inpatient psych unit in stable condition today.
== END 2017-06-16 17:07 | DRG 885 ==
LOC: EDUNIT# → EEVIPCON 17:28 → F2N 18:05
PROVIDERS: ADMIT Internal Medicine; ATTEND Internal Medicine
DX: F33.2 Major depressive disorder, recurrent severe without psychotic features (principal); J96.01 Acute respiratory failure with hypoxia; J69.0 Pneumonitis due to inhalation of food and vomit; E87.2 Acidosis; E87.0 Hyperosmolality and hypernatremia; F10.129 Alcohol abuse with intoxication, unspecified; Y90.8 Blood alcohol level of 240 mg/100 ml or more; D64.9 Anemia, unspecified; T42.6X2A Poisoning by other antiepileptic and sedative-hypnotic drugs, intentional self-harm, initial encounter; T47 Poisoning by, adverse effect of and underdosing of agents primarily affecting the gastrointestinal system; E83.42 Hypomagnesemia
CPT/HCPCS: 80305; 92523-GN; 97161-GP; 97530-GP; G0480; J1335; J1650; J2060; J2250; J2704; J3010

== ENCOUNTER 2017-07-30 13:50 | Emergency (ER) | payer MEDICAID ==
[2017-07-30 13:56] VITALS: TEMP 98.2
[2017-07-30] MEDS ORDERED: HALOPERIDOL LACT 5 MG/ML INJ ONE (14:29)
[2017-07-30] MEDS: HALOPERIDOL LACT 5 MG/ML INJ IM ONE (14:44)
[2017-07-30] MEDS ORDERED: LORazepam 2 MG/ML INJ ONE (14:48)
--- NOTE | 2017-07-30 14:48 | EDPHY ---
H & P <Michelle Gayle - Last Filed: 07/31/17 12:18> Stated Complaint: etoh/ found father who killed himself 3 days ago - Personal History LMP (Females 10-55): 22-28 Days Ago Current Tetanus/Diphtheria Vaccine: Yes - Medical/Surgical History Hx Asthma: No Hx Chronic Respiratory Disease: No Hx Diabetes: No Hx Cardiac Disease: No Hx Renal Disease: No Hx Cirrhosis: No Hx Alcoholism: Yes Hx HIV/AIDS: No Hx Splenectomy or Spleen Trauma: No Other PMH: PMH mental health issues, self mutilation. ETOH ABUSE - Social History Smoking Status: Never smoked <Elyssa Salamanca - Last Filed: 07/31/17 20:39> HPI/ROS: CHIEF COMPLAINT: Intoxicated, combative HISTORY OF PRESENT ILLNESS: 31-year-old female presents emergency department with her intoxicated. states she has been drinking alcohol 4 days. She has a history of some depression, suicidality, anxiety. Patient's father committed suicide and the patient was the person who found him. He after being taken off life support 3 days ago. Patient can provide no history. She is screaming "I want my father "and agitated. He denies any head injury, fall, traumatic event, fevers, vomiting, drug use. He reports that she drinks vodka. REVIEW OF SYSTEMS: Review of systems is unobtainable from this patient because of altered mentation. PAST MEDICAL HISTORY: Depression, anxiety. Prior history of suicide attempt with an overdose SOCIAL HISTORY: Here with her . Denies smoking. denies any drug use history. VITAL SIGNS Reviewed by me. GENERAL: Well-developed, well-nourished, thrashing about the bed, combative.. HEENT: Atraumatic. Eyes: Pupils 4 mm and reactive. No icterus, no injection. Mouth: moist mucous membranes. No erythema or lesions. Neck: supple with no adenopathy. LUNGS: Clear to auscultation bilaterally, no wheezes, rhonchi or rales. CARDIAC: Tachycardic rate, regular rate, no rubs, murmurs or gallops. ABDOMEN: Soft, nontender, nondistended, bowel sounds normal. BACK: No CVA tenderness. EXTREMITIES: No trauma. No edema. Range of motion is normal throughout. NEURO: Alert. Screaming. Unable to assess orientation. Moving all extremities x4. SKIN: Warm and dry, no rash. PSYCHIATRIC: Normal mentation, no agitation. (Elyssa Salamanca) Constitutional: Initial Vital Signs Temperature (C) 36.8 C 07/30/17 13:53 Heart Rate 109 H 07/30/17 13:53 Respiratory Rate 22 H 07/30/17 13:53 Blood Pressure 136/98 H 07/30/17 13:53 O2 Sat (%) 96 07/30/17 13:53 O2 Delivery Mode Room Air Allergies/Adverse Reactions: prochlorperazine [From Compazine] Allergy (Verified 07/30/17 13:52) LOCK JAW prochlorperazine edisylate [From Compazine] Allergy (Verified 07/30/17 13:52) LOCK JAW prochlorperazine maleate [From Compazine] Allergy (Verified 07/30/17 13:52) LOCK JAW Home Medications: Medication Instructions Recorded NK [No Known Home Meds] 07/30/17 Medical Decision Making <Michelle Gayle - Last Filed: 07/31/17 12:18> <Elyssa Salamanca - Last Filed: 07/31/17 20:39> ED Course/Re-evaluation: Noon-this patient has been seen by mental health and felt appropriate for outpatient treatment of depression. The plan is for her to go to the [facility] for alcohol detox and then to follow up at the crisis Center. I spoke to the patient and her and they both feel that this is a safe plan for the patient. She does not feel suicidal now that she is sober. (Michelle Gayle) Patient was quite combative on initial presentation. She is not following commands, and is at risk to hurt herself or others. Patient received Haldol 10 mg 25 mg of Benadryl. On further history the patient reports that she would kill herself if given the chance. reports that she has been expressing suicidal ideation today. He reports he is quite concerned about her safety. Given the patient's significant suicidality, patient was placed on a 72 hour mental health hold by myself. Following her sedation the patient was able to sleep comfortably. She was reassessed on multiple occasions by myself and is sobering appropriately. Initial alcohol level is 294. Patient had a repeat breath performed at 740 p.m. which was 218. Patient's care was assumed by Dr. Sparks at 10:00 p.m.. (Elyssa Salamanca) Differential Diagnosis: Differential diagnoses for the patient's symptom complex was considered including but not limited to alcohol intoxication, head injury, electrolyte abnormalities, depression, overdose, anxiety. (Elyssa Salamanca) - Data Points Laboratory Results: Laboratory Results 07/30/17 15:00 07/30/17 15:00 Medications Given: Discontinued Medications Chlordiazepoxide (Librium 25 Mg Prepack#6) 1 btl TAKEHOME EDNOW ONE Stop: 07/31/17 13:03 Last Admin: 07/31/17 13:14 Dose: 1 btl Diphenhydramine HCl (Benadryl Injection) 25 mg IM EDNOW ONE Stop: 07/30/17 14:44 Last Admin: 07/30/17 14:44 Dose: 25 mg Haloperidol Lactate (Haldol Injection) 10 mg IM EDNOW ONE Stop: 07/30/17 14:44 Last Admin: 07/30/17 14:44 Dose: 10 mg Sodium Chloride (Ns) 1,000 mls @ 0 mls/hr IV ONCE ONE; Wide Open PRN Reason: Protocol Stop: 07/30/17 14:41 Last Admin: 07/30/17 15:08 Dose: 1,000 mls Lorazepam (Ativan Injection) 1 mg IVP EDNOW ONE Stop: 07/30/17 14:49 Last Admin: 07/30/17 15:08 Dose: 1 mg Lorazepam (Ativan) 1 mg PO ONCE ONE Stop: 07/31/17 05:45 Last Admin: 07/31/17 05:48 Dose: 1 mg Departure <Michelle Gayle - Last Filed: 07/31/17 12:18> <Elyssa Salamanca - Last Filed: 07/31/17 20:39> - Departure Disposition: Home, Routine, Self-Care Clinical Impression: Suicidal ideation, Alcoholism Alcoholic intoxication Qualifiers: Complication of substance-induced condition: uncomplicated Qualified Code(s): F10.920 - Alcohol use, unspecified with intoxication, uncomplicated Condition: Good Instructions: Alcohol Intoxication (ED), Suicide Prevention for Adults (ED) Additional Instructions: Follow up with the [facility] and mental health providers. Return to the ED if you experience worsening of your symptoms. Referrals: Reece Bowens MD [Primary Care Provider] - As per Instructions [facility] 24 Hours [Outside] - As per Instructions [facility],. [Clinic] - As per Instructions Report Scribed for: Michelle Gayle Report Scribed by: Sunni Snow Date of Report: 07/31/17 Time of Report: 11:43 <Michelle Gayle - Last Filed: 07/31/17 12:18>
[2017-07-30] MEDS: LORazepam 2 MG/ML INJ IVP ONE (15:08)
[2017-07-30] MEDS: NS 1,000 ML IV ONE (15:08)
[2017-07-30 15:16] LABS: % IMMATURE GRANULYOCYTES 0.5 % (0.0-1.1); ABSOLUTE IMMATURE GRANULOCYTES 0.04 10^3/uL (0.00-0.10); ADD DIFF? NO; ADD MORPH? NO; ADD SCAN? NO; ATYPICAL LYMPHOCYTE FLAG 10 (0-99); FRAGMENT RBC FLAG 0 (0-99); HEMATOCRIT 42.8 % (38.0-47.0); HEMOGLOBIN 14.9 g/dL (12.6-16.3); LEFT SHIFT FLG 0 (0-99); LIPEMIA HEMOLYSIS FLAG 90 (0-99); MEAN CELL HEMOGLOBIN 30.6 pg (27.9-34.1); MEAN CELL HEMOGLOBIN CONCENTR. 34.8 g/dL (32.4-36.7); MEAN CELL VOLUME 87.9 fL (81.5-99.8); MEAN PLATELET VOLUME 8.9 fL (8.7-11.7); PLATELET CLUMPS FLAG 10 (0-99); PLATELET COUNT 383 10^3/uL (150-400); RED BLOOD CELL COUNT 4.87 10^6/uL (4.18-5.33); RED CELL DISTRIBUTION WIDTH 13.2 % (11.5-15.2)
[2017-07-30 15:32] LABS: ANION GAP 19 mEq/L (8-16); CALCIUM 9.3 mg/dL (8.5-10.4); CARBON DIOXIDE 19 mEq/l (22-31); CHLORIDE 106 mEq/L (97-110); CREATININE 0.7 mg/dL (0.6-1.0); ETHANOL SERUM 294 mg/dL (0-10); GLOMERULAR FILTRATION RATE > 60; GLUCOSE 88 mg/dL (70-100); POTASSIUM 3.6 mEq/L (3.5-5.2); SALICYLATE < 1.0 mg/dL (2.0-20.0); SODIUM 144 mEq/L (134-144)
--- NOTE | 2017-07-30 15:42 | CPEKG ---
Heart Rate: 102 RR Interval: 588 P-R Interval: 148 QRSD Interval: 82 QT Interval: 352 QTC Interval: 459 P [place]: 62 QRS [place]: 65 T Wave [place]: 16 EKG Severity - OTHERWISE NORMAL ECG - EKG Impression: SINUS TACHYCARDIA Electronically Signed By: Elyssa Salamanca 30-Jul-2017 21:34:11
[2017-07-31] MEDS: LORazepam 1 MG TAB PO ONE (05:48)
[2017-07-31 09:20] VITALS: O2SAT 96
[2017-07-31] MEDS: CHLORDIAZEPOXIDE 25MG PREPK#6 BTL TAKEHOME ONE (13:14)
[2017-07-31 13:24] VITALS: BP 110/87; PULSE 100; RESP 16
== END 2017-07-31 13:19 | disposition home or self-care (01) ==
DX: R45.851 Suicidal ideations (principal); F10.920 Alcohol use, unspecified with intoxication, uncomplicated; E86.9 Volume depletion, unspecified
CPT/HCPCS: 80305; 96374; G0480; J1200; J2060

== ENCOUNTER 2017-11-03 21:33 | Inpatient (IN) | payer MEDICAID, OTHER ==
[2017-11-03] MEDS ORDERED: NS 1,000 ML IV ONE ×2 (22:11→22:40)
--- NOTE | 2017-11-03 22:11 | EDPHY ---
General - History Smoking Status: Never smoked Narrative: CHIEF COMPLAINT: Syncope, seizure, HISTORY OF PRESENT ILLNESS: Patient presents with her significant other. She reports multiple episodes of losing consciousness. The significant other reports possible seizure-like activity at 6:00 p.m. today. He describes head to toe shaking the lasted 30 sec. She is not aware of this and does not remember any evidence of this. She feels very sore but has no injury to the tongue. No loss of bowel or bladder function. She has no chest pain but is feeling very anxious. Symptoms started 2 days ago when she stopped drinking after positive test. This was an unintended and she has not know whether she wants to terminate or not. Her she says with a positive test she stop drinking immediately. She normally has 10-12 "shooters" per day. She has had no alcohol since then. She has been drinking very little fluid. She has no chest pain. No cardiac diagnoses. No vaginal bleeding or pelvic pain. She has gone into delirium tremens in the past several years ago. No other associated complaints or modifying factors. REVIEW OF SYSTEMS: Ten systems reviewed and are negative unless otherwise noted in the HPI PCP: Dr. Bowens SPECIALISTS: None currently PAST MEDICAL HISTORY: Depression with previous suicide attempts, alcohol abuse PAST SURGICAL HISTORY: No recent surgeries SOCIAL HISTORY: Nonsmoker. Daily alcohol user until 2 days ago. No drug use. Multiple jobs FAMILY HISTORY: Noncontributory EXAMINATION General Appearance: Alert, no distress, anxious Head: normocephalic, atraumatic Eyes: Pupils equal and round, no conjunctival pallor or injection ENT, Mouth: Mucous membranes dry. Airway is patent. Neck: Normal inspection, supple, non-tender Respiratory: Lungs are clear to auscultation Cardiovascular: Tachycardic rate. Regular rhythm. No murmur Gastrointestinal: Abdomen is soft and nontender. No distention or tympany. Back: non-tender, no bony abnormalities Neurological: GCS 15. Cranial nerves 2-12 grossly intact. A&O, nonfocal, mild tremor. Strength is symmetric. No pronator drift. Normal [id number]. Skin: Warm and dry, no rash. No petechiae or purpura Extremities: Nontender, no pedal edema Psychiatric: Mood and affect normal DIFFERENTIAL DIAGNOSES: Including but not limited to alcohol withdrawal, tremens, seizure, dehydration MDM: 10:05 p.m. Alcohol withdrawal with likely early delirium tremens. She is not delirious at this time. She does not exhibit seizure-like activity here but reportedly did at 6:00 p.m. today. She is tachycardic and anxious. She is awake and alert with vital signs otherwise stable. I have ordered EKG, cardiac workup IV Ativan and IV fluid. She will need close monitoring and likely repeated doses of Ativan. Her initial CIWA is 27. I have discussed with Dr. Rodriguez. The patient will require admission to the hospital. 10:20 p.m. Patient has been evaluated Dr. Rodriguez. She agrees with the plan thus far 10:30 p.m. I have discussed the case with hospitalist Dr. Taylor in conjunction with Dr. Rodriguez. He agrees with the plan and recommends aggressive Ativan and therapy and IV fluid resuscitation. 10:[address] Taylor is currently evaluating the patient. She remains awake and alert. 11:00 p.m. Patient has become more nauseated. She still does not have any vomiting, seizure-like activity or any abdominal or pelvic pain. She remains on cardiac rn with no change in activity. She has been admitted in stable condition with repeat Zofran dosing. EKG interpretation: Dr. Rodriguez Sinus tachycardia. No ischemia. No conduction delay SUPERVISION: Patient was evaluated and examined in conjunction with my secondary supervising physician as documented. We have both examined the patient. (Eric Nails) Medical Decision Making: PHYSICIAN DOCUMENTATION: The patient was evaluated and managed by the Physician Credit Processor. My co- signature indicates that I have reviewed this chart and I agree with the findings and plan of care as documented. I am the secondary supervising physician. This is a 32-year-old female, longstanding alcohol abuse who quit drinking 2 days ago when she had a positive home test. She is now complaining of anxiety, nausea and vomiting, tremulousness, and possible seizure versus syncopal episode at home. She had an episode of loss of consciousness in which she collapsed on the ground and was shaking. She has not been able to tolerate anything by mouth. She is not sure if she wants to carry this to term. On exam, she is tachycardic, uncomfortable appearing, mucous membranes are dry and she is tremulous. Her abdominal exam is benign. Differential diagnosis includes alcohol withdrawal, polysubstance abuse, alcohol withdrawal seizure, syncopal episode, dehydration. In the emergency department we have fluid resuscitated her. She has been treated with Ativan. I have discussed risks and benefits of treatment for alcohol withdrawal. In her case, her alcohol withdrawal symptoms could be life- threatening and because of this we should aggressively treat her alcohol withdrawal with benzodiazepines, though this may affect her . She is in agreement with this. She will be admitted to the hospitalist service and Eric has consulted with Dr. Taylor. (Lu Rodriguez) - Objective Vital Signs: Initial Vital Signs Temperature (C) 98.2 F 11/03/17 21:38 Heart Rate 117 H 11/03/17 21:38 Respiratory Rate 16 11/03/17 21:38 Blood Pressure 133/88 H 11/03/17 21:38 O2 Sat (%) 97 11/03/17 21:38 O2 Delivery Mode Room Air O2 (L/minute) 2 Allergies/Adverse Reactions: prochlorperazine [From Compazine] Allergy (Verified 07/30/17 13:52) LOCK JAW prochlorperazine edisylate [From Compazine] Allergy (Verified 07/30/17 13:52) LOCK JAW prochlorperazine maleate [From Compazine] Allergy (Verified 07/30/17 13:52) LOCK JAW Home Medications: Medication Instructions Recorded NK [No Known Home Meds] 07/30/17 Laboratory Results: Laboratory Results 11/03/17 21:55 11/03/17 21:55 11/03/17 11/03/17 11/03/17 21:55 21:55 21:55 WBC 12.32 10^3/uL H 10^3/uL (3.80-9.50) RBC 4.98 10^6/uL 10^6/uL (4.18-5.33) Hgb 16.1 g/dL g/dL (12.6-16.3) Hct 45.7 % % (38.0-47.0) MCV 91.8 fL fL (81.5-99.8) MCH 32.3 pg pg (27.9-34.1) MCHC 35.2 g/dL g/dL (32.4-36.7) RDW 14.6 % % (11.5-15.2) Plt Count 426 10^3/uL H 10^3/uL (150-400) MPV 8.7 fL fL (8.7-11.7) Neut % (Auto) 71.9 % % (39.3-74.2) Lymph % (Auto) 22.2 % % (15.0-45.0) [place] % (Auto) 4.6 % % (4.5-13.0) Eos % (Auto) 0.1 % L % (0.6-7.6) Baso % (Auto) 0.6 % % (0.3-1.7) Nucleat RBC Rel Count 0.0 % % (0.0-0.2) Absolute Neuts (auto) 8.86 10^3/uL H 10^3/uL (1.70-6.50) Absolute Lymphs (auto) 2.73 10^3/uL 10^3/uL (1.00-3.00) Absolute Monos (auto) 0.57 10^3/uL 10^3/uL (0.30-0.80) Absolute Eos (auto) 0.01 10^3/uL L 10^3/uL (0.03-0.40) Absolute Basos (auto) 0.08 10^3/uL 10^3/uL (0.02-0.10) Absolute Nucleated RBC 0.00 10^3/uL 10^3/uL (0-0.01) Immature Gran % 0.6 % % (0.0-1.1) Immature Gran # 0.07 10^3/uL 10^3/uL (0.00-0.10) PT 14.4 SEC SEC (12.0-15.0) INR 1.10 (0.83-1.16) APTT 28.7 SEC SEC (23.0-38.0) Sodium 144 mEq/L mEq/L (135-145) Potassium 3.9 mEq/L mEq/L (3.5-5.2) Chloride 104 mEq/L mEq/L (97-110) Carbon Dioxide 18 mEq/l L mEq/l (22-31) Anion Gap 22 mEq/L H mEq/L (8-16) BUN 6 mg/dL L mg/dL (7-23) Creatinine 0.7 mg/dL mg/dL (0.6-1.0) Estimated GFR > 60 Glucose 105 mg/dL H mg/dL (70-100) Calcium 9.4 mg/dL mg/dL (8.5-10.4) Magnesium 2.2 mg/dL mg/dL (1.6-2.3) Total Bilirubin 0.6 mg/dL mg/dL (0.1-1.4) Conjugated Bilirubin 0.4 mg/dL mg/dL (0.0-0.5) Unconjugated Bilirubin 0.2 mg/dL mg/dL (0.0-1.1) AST 38 IU/L IU/L (14-46) ALT 34 IU/L IU/L (9-52) Alkaline Phosphatase 113 IU/L IU/L (38-126) Creatine Kinase 86 IU/L IU/L (0-156) Troponin I < 0.012 ng/mL ng/mL (0.000-0.034) Total Protein 8.1 g/dL g/dL (6.3-8.2) Albumin 4.7 g/dL g/dL (3.5-5.0) Lipase 106 IU/L IU/L (23-300) Beta HCG, Quant 269.89 mIU/mL H mIU/mL (0.00-4.83) Medications Given: Lorazepam (Ativan Injection) 0.5 - 3 mg IVP Q30M PRN PRN Reason: CIWA-Ar score greater than 15 Stop: 05/02/18 23:04 Last Admin: 11/03/17 23:12 Dose: 1 mg Discontinued Medications Sodium Chloride (Ns) 1,000 mls @ 0 mls/hr IV EDNOW ONE; Wide Open PRN Reason: Protocol Stop: 11/03/17 22:12 Last Admin: 11/03/17 22:14 Dose: 1,000 mls Sodium Chloride (Ns) 1,000 mls @ 0 mls/hr IV EDNOW ONE; Wide Open PRN Reason: Protocol Stop: 11/03/17 22:41 Last Admin: 11/03/17 22:43 Dose: 1,000 mls Lorazepam (Ativan Injection) 1 mg IVP EDNOW ONE Stop: 11/03/17 22:14 Last Admin: 11/03/17 22:15 Dose: 1 mg Lorazepam (Ativan Injection) 2 mg IVP EDNOW ONE Stop: 11/03/17 22:24 Last Admin: 11/03/17 22:27 Dose: 2 mg Ondansetron HCl (Zofran) 4 mg IVP EDNOW ONE Stop: 11/03/17 22:24 Last Admin: 11/03/17 22:27 Dose: 4 mg Ondansetron HCl (Zofran) 4 mg IVP EDNOW ONE Stop: 11/03/17 23:02 Last Admin: 11/03/17 23:04 Dose: 4 mg Departure - Departure Disposition: [facility] Clinical Impression: Alcohol dependence Qualifiers: Substance use status: in withdrawal Complication of substance-induced condition : with unspecified complication Qualified Code(s): F10.239 - Alcohol dependence with withdrawal, unspecified Alcohol withdrawal Qualifiers: Complication of substance-induced condition: with unspecified complication Qualified Code(s): F10.239 - Alcohol dependence with withdrawal, unspecified Condition: Fair
[2017-11-03] MEDS ORDERED: LORazepam 2 MG/ML INJ ONE (22:12)
[2017-11-03] MEDS ORDERED: LORazepam 2 MG/ML INJ IVP ONE ×2 (22:13→22:23)
--- NOTE | 2017-11-03 22:16 | CPEKG ---
Heart Rate: 102 RR Interval: 588 P-R Interval: 148 QRSD Interval: 74 QT Interval: 352 QTC Interval: 459 P [place]: 41 QRS [place]: 47 T Wave [place]: 6 EKG Severity - OTHERWISE NORMAL ECG - EKG Impression: SINUS TACHYCARDIA Electronically Signed By: Lu Rodriguez 03-Nov-2017 22:53:31
[2017-11-03 22:21] LABS: PLATELET COUNT 426 10^3/uL (150-400)
[2017-11-03 22:22] LABS: INR 1.1 (0.83-1.16); PROTIME(PATIENT) 14.4 SEC (12.0-15.0)
[2017-11-03] MEDS ORDERED: ONDANSETRON 4 MG/2 ML VIAL IVP ONE ×2 (22:23→23:01)
[2017-11-03 22:24] LABS: CREATINE KINASE 86 IU/L (0-156)
--- NOTE | 2017-11-03 22:53 | PDGENHP ---
History and Physical - Chief Complaint Syncope, alcohol withdrawal - History of Present Illness 32 yo F w/ hx of depression and ETOH abuse presents after episode of syncope and in ETOH withdrawal. Patient's last drink was 3 days ago. She drinks 10-12 beverages daily, and has done so for about 7 years. She has been admitted to the hospital for this multiple times in the past. In addition, she found out she is 2 days ago after taking multiple urine tests at home. She has not had this evaluated as of yet. They were at home today when her partner noted an episode of syncope followed by tremors. He does not describe classic tonic clonic movements or a post-ictal state. She has had several seizures in the past exclusively in the setting of ETOH w/d. She was on Lamictal for about 6 months in 2017 but has not taken any medications in about 6 months. All her medications were stopped last May after an attempted overdose attempt. At the time of my evaluation patient is tachycardic and tremulous but is well oriented and denies other complaints. History Information - Allergies/Home Medication List Allergies/Adverse Reactions: prochlorperazine [From Compazine] Allergy (Verified 07/30/17 13:52) LOCK JAW prochlorperazine edisylate [From Compazine] Allergy (Verified 07/30/17 13:52) LOCK JAW prochlorperazine maleate [From Compazine] Allergy (Verified 07/30/17 13:52) LOCK JAW Home Medications: NK [No Known Home Meds] 07/30/17 [Last Taken Unknown] I have personally reviewed and updated: family history, medical history - Past Medical History Additional medical history: Depression. Seizures in the setting of ETOH w/d - Family History Additional family history: Depression. Schizophrenia. Substance abuse - Social History Smoking Status: Never smoked Review of Systems Review of Systems: ROS: 10pt was reviewed & negative except for what was stated in HPI & below Physical Exam Physical Exam: Temp Pulse Resp BP Pulse Ox 36.8 C 117 H 16 133/88 H 97 11/03/17 21:38 11/03/17 21:38 11/03/17 21:38 11/03/17 21:38 11/03/17 21:38 Constitutional: appears nourished, uncomfortable Eyes: PERRL, EOMI Ears, Nose, Mouth, Throat: moist mucous membranes, no oral mucosal ulcers Cardiovascular: no murmur, rub, or gallop, tachycardia Respiratory: no respiratory distress, clear to auscultation Gastrointestinal: normoactive bowel sounds, soft, non-tender abdomen Skin: warm, normal color Musculoskeletal: full muscle strength, no muscle tenderness Neurologic: AAOx3, CN II-XII Intact, other (Mild UE fine tremor, + tongue fasciculations) Psychiatric: interacting appropriately, not anxious Lab Data & Imaging Review 11/03/17 21:55 11/03/17 21:55 WBC 12.32 10^3/uL (3.80-9.50) H 11/03/17 21:55 RBC 4.98 10^6/uL (4.18-5.33) 11/03/17 21:55 Hgb 16.1 g/dL (12.6-16.3) 11/03/17 21:55 Hct 45.7 % (38.0-47.0) 11/03/17 21:55 MCV 91.8 fL (81.5-99.8) 11/03/17 21:55 MCH 32.3 pg (27.9-34.1) 11/03/17 21:55 MCHC 35.2 g/dL (32.4-36.7) 11/03/17 21:55 RDW 14.6 % (11.5-15.2) 11/03/17 21:55 Plt Count 426 10^3/uL (150-400) H 11/03/17 21:55 MPV 8.7 fL (8.7-11.7) 11/03/17 21:55 Neut % (Auto) 71.9 % (39.3-74.2) 11/03/17 21:55 Lymph % (Auto) 22.2 % (15.0-45.0) 11/03/17 21:55 [place] % (Auto) 4.6 % (4.5-13.0) 11/03/17 21:55 Eos % (Auto) 0.1 % (0.6-7.6) L 11/03/17 21:55 Baso % (Auto) 0.6 % (0.3-1.7) 11/03/17 21:55 Nucleat RBC Rel Count 0.0 % (0.0-0.2) 11/03/17 21:55 Absolute Neuts (auto) 8.86 10^3/uL (1.70-6.50) H 11/03/17 21:55 Absolute Lymphs (auto) 2.73 10^3/uL (1.00-3.00) 11/03/17 21:55 Absolute Monos (auto) 0.57 10^3/uL (0.30-0.80) 11/03/17 21:55 Absolute Eos (auto) 0.01 10^3/uL (0.03-0.40) L 11/03/17 21:55 Absolute Basos (auto) 0.08 10^3/uL (0.02-0.10) 11/03/17 21:55 Absolute Nucleated RBC 0.00 10^3/uL (0-0.01) 11/03/17 21:55 Immature Gran % 0.6 % (0.0-1.1) 11/03/17 21: Immature Gran # 0.07 10^3/uL (0.00-0.10) 11/03/17 21:55 PT 14.4 SEC (12.0-15.0) 11/03/17 21:55 INR 1.10 (0.83-1.16) 11/03/17 21:55 APTT 28.7 SEC (23.0-38.0) 11/03/17 21:55 Sodium 144 mEq/L (135-145) 11/03/17 21:55 Potassium 3.9 mEq/L (3.5-5.2) 11/03/17 21:55 Chloride 104 mEq/L (97-110) 11/03/17 21:55 Carbon Dioxide 18 mEq/l (22-31) L 11/03/17 21:55 Anion Gap 22 mEq/L (8-16) H 11/03/17 21:55 BUN 6 mg/dL (7-23) L 11/03/17 21:55 Creatinine 0.7 mg/dL (0.6-1.0) 11/03/17 21:55 Estimated GFR > 60 11/03/17 21:55 Glucose 105 mg/dL (70-100) H 11/03/17 21:55 Calcium 9.4 mg/dL (8.5-10.4) 11/03/17 21:55 Magnesium 2.2 mg/dL (1.6-2.3) 11/03/17 21:55 Total Bilirubin 0.6 mg/dL (0.1-1.4) 11/03/17 21:55 Conjugated Bilirubin 0.4 mg/dL (0.0-0.5) 11/03/17 21:55 Unconjugated Bilirubin 0.2 mg/dL (0.0-1.1) 11/03/17 21:55 AST 38 IU/L (14-46) 11/03/17 21:55 ALT 34 IU/L (9-52) 11/03/17 21:55 Alkaline Phosphatase 113 IU/L (38-126) 11/03/17 21:55 Creatine Kinase 86 IU/L (0-156) 11/03/17 21: Troponin I < 0.012 ng/mL (0.000-0.034) 11/03/17 21: Total Protein 8.1 g/dL (6.3-8.2) 11/03/17 21:55 Albumin 4.7 g/dL (3.5-5.0) 11/03/17 21:55 Lipase 106 IU/L (23-300) 11/03/17 21:55 Beta HCG, Quant 269.89 mIU/mL (0.00-4.83) H 11/03/17 21:55 Visualized and Interpreted EKG results: Yes EKG Interpretation: Positive for: other (Sinus tachycardia) Assessment & Plan Assessment: 32 yo F w/ hx of depression and ETOH abuse presents with ETOH w/d and +UPT. Plan: 1. ETOH abuse with acute withdrawal - Patient drinks 10-12 drinks daily and has done so for about 7 years. Last drink was 3 days ago. CIWA score 27 on arrival to the ED, showing good improvement with IV Ativan so far. Situation complicated by recently finding out she is . - Admit to SDU - Will proceed with CIWA, Lorazepam IV protocol although category C noting significant risk to mother in this scenario; I discussed risk and benefits at length with patient and partner - Monitor electrolytes closely including Mg, Ph - Daily thiamine, folate, MVI 2. Syncope - Reported around 6:30 PM on day of admission. Partner describes 30 second loss of consciousness with mild tremulousness. He does not describe classic tonic-clonic movement and denies post-ictal state. She does have history of ETOH w/d seizures in the past and was on Lamictal for about 6 months last year until she attempted an overdose. - Will observe off of anti-epileptics for now and treat ETOH w/d - Seizure precautions 3. Depression - Patient reports severe depression with prior suicide attempt. This is likely complicating ETOH abuse and treatment, which she has tried on 3 occasions. She attempted overdose last May but denies SI at this time. Currently not on medications. 4. - +UPT at home with B-HCG of 269 in ED. Has not been further evaluated so far. - Consider MFM consult for complicated if patient desires Diet - Regular Code - Full Ppx - SCDs Dispo - Admit to SDU under observation status
[2017-11-03] MEDS ORDERED: ONDANSETRON 4 MG/2 ML VIAL ONE (23:01)
[2017-11-03] MEDS ORDERED: ACETAMINOPHEN 325 MG TAB PO PRN (23:03)
[2017-11-03] MEDS ORDERED: ONDANSETRON 4 MG/2 ML VIAL IVP PRN (23:03)
[2017-11-03] MEDS ORDERED: ONDANSETRON DISINTEGRATING 4 MG TAB PO PRN (23:03)
[2017-11-03] MEDS: LORazepam 2 MG/ML INJ IVP PRN (23:12)
[2017-11-03] MEDS: D5W 1/2 NS 1,000 ML IV SCH (23:48)
[2017-11-04] MEDS: LORazepam 2 MG/ML INJ IVP PRN ×6 (05:34→15:53)
[2017-11-04 05:46] LABS: PLATELET COUNT 317 10^3/uL (150-400)
--- NOTE | 2017-11-04 09:16 | HOSPPROG ---
Hospitalist Progress Note Assessment/Plan: #Acute Etoh w/d and seizure: scoring >20 on CIWA. Add scheduled librium #Hypophosphatemia: repleting #Leukocytosis: resolved. Does have + UA, will treat and get culture #: she does not want to keep baby. Will help provide Ob FU #Diet: regular #Disp: cont inpatient admission for etoh, requiring CIWA, abx. If patient tries to leave, would place on medical hold given high-risk for seizure and subsequent harm Subjective: very anxious, tremulous Objective: Vital Signs Temp Pulse Resp BP Pulse Ox 36.9 C 121 H 20 133/78 H 98 11/04/17 07:42 11/04/17 07:42 11/04/17 07:42 11/04/17 07:42 11/04/17 07:42 Laboratory Results 11/04/17 05:32 11/04/17 05:32 11/03/17 11/04/17 11/05/17 05:59 05:59 05:59 Intake Total 1500 Output Total 400 Balance 1100 PT 14.4 SEC (12.0-15.0) 11/03/17 21:55 INR 1.10 (0.83-1.16) 11/03/17 21:55 ICD10 Worksheet Patient Problems: Problems Problem Status Onset Alcohol dependence Acute Alcohol withdrawal Acute Aspiration into airway Acute Overdose of medication Acute
[2017-11-04] MEDS: MULTIVITAMINS 1 EACH TAB PO SCH (09:35)
[2017-11-04] MEDS: D5W 1/2 NS 1,000 ML IV SCH (09:35)
[2017-11-04] MEDS: FOLIC ACID 1 MG TAB PO SCH (09:35)
[2017-11-04] MEDS: THIAMINE HCL 100 MG TAB PO SCH (09:35)
[2017-11-04] MEDS: chlordiazePOXIDE 25 MG CAP PO PRN ×2 (11:08→22:11)
[2017-11-04] MEDS ORDERED: K PHOS 10 MMOL in D5W 250 ML IV ONE (12:00)
--- NOTE | 2017-11-04 14:00 | PDMN ---
Medical Necessity Medical necessity: C/M review: Patient meets INPT criteria under [facility] M-[id number] Substance related disorders: Acute and persistent alcohol withdrawal and acute seizure, scoring > 20 on CIWA, hypophosphatemia, Phos 1.9. leukocytosis resolved , WBC 12.32, 9.28, requiring IV potassium phosphate x 1, planned assist for OB follow up, if patient tries to leave AMA, planned medical hold given high risk for seizure and subsequent harm, ongoing IV Ativan, IV fluids, oral Keflex, cardiac monitoring, CIWA protocol, comorbid alcoholism. anticipates > 2 MN LOS for ongoing med nec for eval and TX of above.
[2017-11-04] MEDS: CEPHALEXIN 500 MG CAP PO SCH ×2 (14:26→17:52)
--- NOTE | 2017-11-04 16:12 | ASMTCMCOM ---
CM Note CM Note Notes: Patient admitted for alcohol withdrawl. She reported seizures and symptoms of w/d after abruptly stopping drinking when she found out she was . I spoke with patient and Dewi about where they can follow up after hospitalization since they have expressed a desire to terminate the . They were both familiar with [facility] and [facility] and will follow up wih both to see which facility they want to use. CM available for any other needs. Date Signed: 11/04/2017 04:11 PM Electronically Signed By:Lynda Kunz RN
[2017-11-04] MEDS: LORazepam 1 MG TAB PO PRN ×2 (17:52→22:11)
[2017-11-05] MEDS: LORazepam 2 MG/ML INJ IVP PRN (00:15)
[2017-11-05] MEDS: CEPHALEXIN 500 MG CAP PO SCH ×3 (00:15→11:25)
[2017-11-05] MEDS: THIAMINE HCL 100 MG TAB PO SCH (08:38)
[2017-11-05] MEDS: MULTIVITAMINS 1 EACH TAB PO SCH (08:38)
[2017-11-05] MEDS: FOLIC ACID 1 MG TAB PO SCH (08:38)
[2017-11-05 08:47] VITALS: TEMP 97.9
[2017-11-05] MEDS: chlordiazePOXIDE 25 MG CAP PO PRN (11:25)
[2017-11-05 11:35] VITALS: BP 120/56; PULSE 100; RESP 14; O2SAT 99
--- NOTE | 2017-11-05 14:06 | GDS ---
[f rep st] DISCHARGE SUMMARY DISCHARGE DIAGNOSES: 1. Acute alcohol withdrawal and seizure. 2. Tachycardia. 3. . 4. Hypophosphatemia. 5. Leukocytosis. 6. Urinary tract infection. 7. History of overdose attempt. HISTORY OF PRESENT ILLNESS: A 32-year-old female with known alcohol dependence who presented after a n episode of syncope and alcohol withdrawal. Her last drink was 3 days prior to admission when she f ound out she was . She drinks 10-12 alcoholic beverages a day and has done so for the past 7 years. She has had multiple hospitalizations for withdrawal in the past. When she was at home prior to admission, her partner noted she passed out and then developed tremors. He does not describe classic tonoclonic movements or postictal state. She had been on Lamictal for about 6 months in 2017, but has not taken any medication in 6 months, because all of her medications were stopped last May after an overdose attempt. HOSPITAL COURSE: 1. Acute alcohol withdrawal with seizure: The patient abruptly stopped drinking when she found out she was . She has improved quickly on CIWA here and she will be discharged home with Librium . None of the treatments are ideal given , Ativan or Librium, but given high risk for seizu re the patient agreed for taper of this medication. Case Management evaluated the patient to help wi th treatment plan, however, patient is adamant about getting back to work right away. 2. Hypophosphatemia, repleted. 3. Leukocytosis, likely secondary to UTI and dehydration. She will be treated with Keflex for 3 day s, especially in the setting of . 4. . She just found out 2 days ago by home test. [facility]. She was advised to refrain from alcohol. 5. Tachycardia secondary to alcohol withdrawal. This improved with treatment. DISPOSITION: Patient is stable for discharge home. NEW MEDICATIONS: 1. Librium 25 mg three times daily. 2. Keflex. FOLLOWUP: 1. [facility] rehab program. 2. [facility] PHYSICAL EXAM: VITAL SIGNS: Today, temperature 36.6, blood pressure 120/56, heart rate is in the 90 s, respiration 14, 99% on room air. GENERAL: Sitting in bed, no acute distress. HEENT: PERRLA. O ropharynx clear. CV: Regular rate and rhythm. No murmurs, gallops, rubs. LUNGS: Clear to auscult ation bilaterally. ABDOMEN: Soft, nontender, nondistended. Positive bowel sounds. : No [place]. MUSCULOSKELETAL: 5/5 upper and lower extremity strength. NEUROLOGIC: Minimal tongue fasciculation . No hand tremor. PSYCH: Alert and oriented x3. /[id number]/MODL
--- NOTE | 2017-11-05 17:35 | ASDISCHSUM ---
Discharge Information Plan Status:Home with No Needs Medically Cleared to Leave:11/04/2017 Discharge Date:11/05/2017 11:55 AM CM D/C Disposition:Home, Routine, Self-Care ADT D/C Disposition:Home, Routine, Self-Care Projected Discharge Date:11/05/2017 11:00 AM Transportation at D/C:Friend Discharge Delay Reason: Follow-Up Date:11/05/2017 11:00 AM Discharge Slot: Final Diagnosis:ETOH W/D, Placement Information Patient Contact Information Contact Name:FLACA Relationship: Address:[address] Work Phone: City:[place] Alternate Phone: State/Zip Code:[place] [address] Email: Financial Information Financial Class:Self-Pay Primary Plan Desc:SELF PAY Primary Plan Number: Secondary Plan Desc: Secondary Plan Number: Assessment Information [facility] CM Progress Note CM Note CM Note Notes: Patient admitted for alcohol withdrawl. She reported seizures and symptoms of w/d after abruptly stopping drinking when she found out she was . I spoke with patient and Cindy about where they can follow up after hospitalization since they have expressed a desire to terminate the . They were [facility] familiar with [facility] and [facility] and will follow up wi both to see which facility they want to use. CM available for any other needs. Date Signed: 11/04/2017 04:11 PM Electronically Signed By:Lynda Kunz RN Case Management Discharge Plan Note Case Management Discharge Discharge Order Complete? Answers: Yes Followup Appointment 11/05/2017 11:00 AM Patient to Obtain Answers: Independently Medications Transportation Arranged Answers: Family/Friends Transport will Pick (Date 11/05/2017 11:00 AM & Time) Discharge Comments Notes: Patient admitted for ETOH, recently learned that she was . She reports that she goes to AA mtgs, has a sponsor, a therapist and has been through ETOH tx. Had been doing well, but her father recently committed suicide. She has a hx of suicidal ideation. Presently her boyfriend and sponsor are at her side in [facility]. Patient needed a letter for work and working two jobs. Patient seems to be on the right track and has good support emotionally and concerned about her . Thinking about . Contact made to CPS Jenise Manuel to inform of ETOH and . Patient given ETOH tx res and recent AA Mtg list. Patient discharged home. Date Signed: 11/05/2017 05:34 PM Electronically Signed By:Zuleyma Mera LCSW Intervention Information
== END 2017-11-05 11:55 | disposition home or self-care (01) | DRG 897 ==
LOC: INTOOBSV 22:34 → F2N 23:25 → OBSVTOIN 11-04 13:40
PROVIDERS: ADMIT Student in an Organized Health Care Education/Training Program; ATTEND Student in an Organized Health Care Education/Training Program
DX: F10.239 Alcohol dependence with withdrawal, unspecified (principal); G40.89 Other seizures; N39.0 Urinary tract infection, site not specified; R00.0 Tachycardia, unspecified; E83.39 Other disorders of phosphorus metabolism; Z33.1 Pregnant state, incidental; Z91.5 Personal history of self-harm
CPT/HCPCS: 96374; G0378; J2060; J2405

== ENCOUNTER 2017-11-13 17:00 | Emergency (ER) | payer OTHER ==
--- NOTE | 2017-11-13 18:17 | EDPHY ---
H & P Stated Complaint: Poss miscarriage;LMP in July;spotting/cramping;intoxicated - Personal History LMP (Females 10-55): Current Tetanus Diphtheria and Acellular Pertussis (TDAP): Yes - Medical/Surgical History Hx Asthma: No Hx Chronic Respiratory Disease: No Hx Diabetes: No Hx Cardiac Disease: No Hx Renal Disease: No Hx Cirrhosis: No Hx Alcoholism: Yes Hx HIV/AIDS: No Hx Splenectomy or Spleen Trauma: No Other PMH: PMH mental health issues, self mutilation. ETOH ABUSE. [id number] - Social History Smoking Status: Never smoked Time Seen by Provider: 11/13/17 18:06 HPI/ROS: CHIEF COMPLAINT: "I think I might be miscarrying " HISTORY OF PRESENT ILLNESS: 32-year-old SAB 3 recently found out she was , presents to the ER complaining of suprapubic cramping, spotting and passage of clots for the past 4 days. [facility] told that she may be experiencing a spontaneous , may be experiencing ectopic however they could not tell secondary to her ultrasound findings. She continues to drink alcohol, last drink of alcohol was 8 hr ago. REVIEW OF SYSTEMS: A ten point review of systems was performed and is negative with the exception of the items mentioned in the HPI PAST MEDICAL & SURGICAL HISTORY: SAB 3, alcoholism SOCIAL HISTORY:Last drink of alcohol 8 hr ago PHYSICAL EXAM (Prior to examination, patient consented to physical exam, hands were washed and my usual and customary physical exam procedures followed) 1) GENERAL: Well-developed, well-nourished, alert and oriented. Appears to be in no acute distress. 2) HEAD: Normocephalic, atraumatic 3) HEENT: Pupils equal, round, reactive to light bilaterally. Sclera anicteric. 4) NECK: Full range of motion, no meningeal signs. 5) LUNGS: Clear auscultation bilaterally, no wheezes, no rhonchi, no retractions. 6) HEART: Regular rate and rhythm, no murmur, no heave, no gallop. 7) ABDOMEN: No guarding, mild tenderness to palpation suprapubic region. no rebound, negative McBurney's, negative Mejia's, negative Rovsing's, negative peritoneal sign, 8) MUSCULOSKELETAL: Moving all extremities, no focal areas of tenderness, no obvious trauma. No peripheral edema or discoloration. 9) BACK: No CVA tenderness, no midline vertebral tenderness, no fluctuance, no step-off, no obvious trauma, no visual or palpable abnormality. 10) SKIN: No rash, no petechiae. 11) Psychiatric: Patient is oriented X 3, there is no agitation. DIFFERENTIAL DIAGNOSIS: In no particular include but limited to ectopic , spontaneous , threatened (Jossy Grimes) Constitutional: Initial Vital Signs Temperature (C) 36.7 C 11/13/17 17:12 Heart Rate 103 H 11/13/17 17:12 Respiratory Rate 18 11/13/17 17:12 Blood Pressure 110/80 11/13/17 17:12 O2 Sat (%) 96 11/13/17 17:12 O2 Delivery Mode Room Air Allergies/Adverse Reactions: prochlorperazine [From Compazine] Allergy (Verified 11/13/17 17:11) LOCK JAW prochlorperazine edisylate [From Compazine] Allergy (Verified 11/13/17 17:11) LOCK JAW prochlorperazine maleate [From Compazine] Allergy (Verified 11/13/17 17:11) LOCK JAW Home Medications: Medication Instructions Recorded NK [No Known Home Meds] 11/13/17 Medical Decision Making - Diagnostics Imaging Results: Imaging Impressions Obstetrics Ultrasound 11/13/17 18:08 Impression: 1. There is no viable intrauterine identified. The endometrium is thin , measuring 6.5 mm. 2. There is a 2.0 cm corpus luteum cyst associated with the left ovary, however inferior to the left ovary, there is a 1.3 x 1.3 x 3.1 cm complex-appearing vascular structure, and an ectopic in this location cannot be excluded. Clinical correlation is recommended. Findings were discussed with Devi Grimes PA-C at 19:12, on 11/13/2017. He indicates that the quantitative beta hCG value is now available, and is very low , only measuring 230. Imaging Impressions Obstetrics Ultrasound 11/13/17 18:08 Impression: 1. There is no viable intrauterine identified. The endometrium is thin , measuring 6.5 mm. 2. There is a 2.0 cm corpus luteum cyst associated with the left ovary, however inferior to the left ovary, there is a 1.3 x 1.3 x 3.1 cm complex-appearing vascular structure, and an ectopic in this location cannot be excluded. Clinical correlation is recommended. Findings were discussed with Deiv Grimes PA-C at 19:12, on 11/13/2017. He indicates that the quantitative beta hCG value is now available, and is very low , only measuring 230. Images reviewed by myself (Jossy Grimes) ED Course/Re-evaluation: I evaluated this patient with JIN Medina. I agree with the management. I agreed the plan. This patient is a chronic alcoholic with alcohol withdrawal seizures and is . She may have an ectopic according to our ultrasound will consult tape stringer. (Chava Ramirez) 6:17 p.m.: I reviewed the patient's old medical records apartment he was recently admitted to the hospital for acute alcohol withdrawal with seizure. [facility] of [facility]ting , in the ER complaining of mild suprapubic pain continued intermittent spotting and passage of a single clot few days ago which she does not have with her. Will obtain diagnostic studies including Rh, urinalysis, ultrasound. Stressed the importance of alcohol cessation during , discussed alcohol syndrome with the patient. 7:47 p.m. phone consultation with Dr. Evangelina PERRIN at this time, discussed the ultrasound imaging. She recommends follow up in the office the next 1-2 days (today is Monday). (Jossy Grimes) - Data Points Laboratory Results: Laboratory Results 11/13/17 18:15 11/13/17 18:15 11/13/17 11/13/17 11/13/17 19:00 18:15 18:15 WBC RBC Hgb Hct MCV MCH MCHC RDW Plt Count MPV Neut % (Auto) Lymph % (Auto) [place] % (Auto) Eos % (Auto) Baso % (Auto) Nucleat RBC Rel Count Absolute Neuts (auto) Absolute Lymphs (auto) Absolute Monos (auto) Absolute Eos (auto) Absolute Basos (auto) Absolute Nucleated RBC Immature Gran % Immature Gran # Sodium Potassium Chloride Carbon Dioxide Anion Gap BUN Creatinine Estimated GFR Glucose Calcium Beta HCG, Qual POSITIVE Beta HCG, Quant Urine Color YELLOW Urine Appearance HAZY Urine pH 6.0 (5.0-7.5) Ur Specific [place] 1.012 (1.002-1.030) Urine Protein NEGATIVE (NEGATIVE) Urine Ketones NEGATIVE (NEGATIVE) Urine Blood 3+ H (NEGATIVE) Urine Nitrate NEGATIVE (NEGATIVE) Urine Bilirubin NEGATIVE (NEGATIVE) Urine Urobilinogen NEGATIVE EU EU (0.2-1.0) Ur Leukocyte Esterase NEGATIVE (NEGATIVE) Urine RBC 1-3 /hpf /hpf (0-3) Urine WBC 1-3 /hpf /hpf (0-3) Ur Epithelial Cells 1+ /lpf /lpf (NONE-1+) Urine Mucus 1+ /lpf /lpf (NONE-1+) Urine Glucose NEGATIVE (NEGATIVE) Patient ABO/Rh O POSITIVE 11/13/17 11/13/17 18:15 18:15 WBC 5.96 10^3/uL 10^3/uL (3.80-9.50) RBC 4.87 10^6/uL 10^6/uL (4.18-5.33) Hgb 15.6 g/dL g/dL (12.6-16.3) Hct 44.7 % % (38.0-47.0) MCV 91.8 fL fL (81.5-99.8) MCH 32.0 pg pg (27.9-34.1) MCHC 34.9 g/dL g/dL (32.4-36.7) RDW 14.0 % % (11.5-15.2) Plt Count 363 10^3/uL 10^3/uL (150-400) MPV 8.7 fL fL (8.7-11.7) Neut % (Auto) 52.4 % % (39.3-74.2) Lymph % (Auto) 40.9 % % (15.0-45.0) [place] % (Auto) 4.0 % L % (4.5-13.0) Eos % (Auto) 0.7 % % (0.6-7.6) Baso % (Auto) 1.0 % % (0.3-1.7) Nucleat RBC Rel Count 0.0 % % (0.0-0.2) Absolute Neuts (auto) 3.12 10^3/uL 10^3/uL (1.70-6.50) Absolute Lymphs (auto) 2.44 10^3/uL 10^3/uL (1.00-3.00) Absolute Monos (auto) 0.24 10^3/uL L 10^3/uL (0.30-0.80) Absolute Eos (auto) 0.04 10^3/uL 10^3/uL (0.03-0.40) Absolute Basos (auto) 0.06 10^3/uL 10^3/uL (0.02-0.10) Absolute Nucleated RBC 0.00 10^3/uL 10^3/uL (0-0.01) Immature Gran % 1.0 % % (0.0-1.1) Immature Gran # 0.06 10^3/uL 10^3/uL (0.00-0.10) Sodium 151 mEq/L H mEq/L (135-145) Potassium 4.0 mEq/L mEq/L (3.5-5.2) Chloride 111 mEq/L H mEq/L (97-110) Carbon Dioxide 22 mEq/l mEq/l (22-31) Anion Gap 18 mEq/L H mEq/L (8-16) BUN 5 mg/dL L mg/dL (7-23) Creatinine 0.6 mg/dL mg/dL (0.6-1.0) Estimated GFR > 60 Glucose 100 mg/dL mg/dL (70-100) Calcium 9.0 mg/dL mg/dL (8.5-10.4) Beta HCG, Qual Beta HCG, Quant 229.51 mIU/mL H mIU/mL (0.00-4.83) Urine Color Urine Appearance Urine pH Ur Specific [place] Urine Protein Urine Ketones Urine Blood Urine Nitrate Urine Bilirubin Urine Urobilinogen Ur Leukocyte Esterase Urine RBC Urine WBC Ur Epithelial Cells Urine Mucus Urine Glucose Patient ABO/Rh Departure - Departure Disposition: Home, Routine, Self-Care Clinical Impression: Qualifiers: Weeks of gestation: less than 8 weeks Qualified Code(s): Z3A.01 - Less than 8 weeks gestation of Condition: Good Instructions: (ED) Additional Instructions: Ectopic is not ruled out. It is important that you follow up with OBGYN as indicated on your aftercare instructions. Referrals: Evangelina Gonzalez MD [Medical Doctor] - 1-2 days without fail
[2017-11-13 18:25] LABS: PLATELET COUNT 363 10^3/uL (150-400)
[2017-11-13 19:29] VITALS: RESP 16
[2017-11-13 20:39] VITALS: BP 128/76; PULSE 85; TEMP 97.7; O2SAT 97
== END 2017-11-13 20:38 | disposition home or self-care (01) ==
DX: O26.891 Other specified pregnancy related conditions, first trimester (principal); Z3A.01 Less than 8 weeks gestation of pregnancy